=== PATIENT | female | born 1970 | race Caucasian/White ===

== ENCOUNTER 2018-05-13 12:52 | Inpatient (IN) | payer OTHER ==
[~2018-05-13] VITALS: Ht 160 cm; Wt 64.0 kg
[~2018-05-13 12:52] MED LIST: AZITHROMYCIN250 MG PO; CLONAZEPAM0.5 M2 PO; FIORICET 325 MG1 TAB PO; GABAPENTIN400 M2 PO; GABAPENTIN400 MG PO; PEN-VK500 MG PO; PERCOCET 325 MG1 TA2 PO; PERCOCET 325 MG1 TAB PO; TRAZODONE HCL50 M1 PO
[2018-05-13] MEDS ORDERED: SERTRALINE HCL100 MG PO (13:30)
[2018-05-13] MEDS ORDERED: CLONAZEPAM1 M2 PO (13:30)
[2018-05-13] MEDS ORDERED: GABAPENTIN600 M1 PO (13:30)
[2018-05-13] MEDS ORDERED: BUTALB-ACETAMI1 EACH PO (13:31)
[2018-05-13] MEDS ORDERED: OLANZAPINE10 M1 PO (13:31)
[2018-05-13] MEDS ORDERED: ADDERALL 10 MG10 MG PO (13:32)
--- NOTE | 2018-05-13 13:41 | ED DYSPNEA/ASTHMA COMPLAINT ---
History of Present Illness General Chief Complaint: General Adult Stated Complaint: SENT IN BY MD MCKEON FOR CHEST PAIN R/O PE Source: patient Allergies Coded Allergies: NO KNOWN ALLERGIES (07/29/13) Triage Note: 48 YO FEMALE TO TRIAGE FOR EVAL OF R SIDED CHEST PAIN AND +SOB SINCE THURSDAY. STATES WENT TO [facility] THIS AM AND HER HR WAS "UP AND DOWN" REPORTS HX OF ANXIETY AND WAS UNSURE IF SHE WAS STARTING TO HAVE AN ANXIETY ATTACK. EKG COMPELTED JULIO SUAREZ. Triage Nurses Notes Reviewed? yes HPI: Ms. Foster is a 48 y/o female with a significant past medical history of anxiety and depression comes to the ED after a PCP visit referred her to the ED for further evaluation due to a two day history of shortness of breath that appeared at rest and worsened on exertion. This shortness of breath is accompanied by stabbing right-sided chest pain, 7 out of 10, with no radiation that worsens with deep breathing. Patient denies any previous similar episodes, diaphoresis, history of DVT, recent immobilization, cough, LOC, and recent fevers. (Lexx Cerrato MD,[facility]) General Exam Limitations: no limitations Vital Signs & Intake/Output Vital Signs & Intake/Output Vital Signs Date Time Temp Pulse Resp B/P B/P Pulse O2 O2 Flow FiO2 Mean Ox Delivery Rate 05/13 1538 97.7 99 22 128/80 98 05/13 1304 97.8 106 20 130/84 96 Room Air Reconcile Medications Butalb/Acetaminophen/Caffeine (Sdsxsc-Vbbxmibq-Epac 50-325-40) 50 MG-325 MG-40 MG TABLET 1 TAB PO DAILY PRN HEADACHE (Reported) Clonazepam 1 MG TABLET 1 TAB PO QPMP PRN ANXIETY (Reported) Dextroamphetamine/Amphetamine (Adderall 10 MG Tablet) 10 MG TABLET 1 TAB PO BID PRN ANXIETY (Reported) Gabapentin 600 MG TABLET 2 TAB PO QPM SLEEP (Reported) Olanzapine 10 MG TABLET 1 TAB PO QPM SLEEP (Reported) Sertraline HCl 100 MG TABLET 2 TAB PO DAILY MENTAL HEALTH (Reported) (Nicolás MORGAN,Vinnie Osuna) Past History Travel History Traveled to [place] past 21 day No Medical History Any Pertinent Medical History? 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 No (Efren Baumann MD) Psychosocial History ETOH Use: occasional use Illicit Drug Use: denies illicit drug use (Nicolás MORGAN,Vinnie Osuna) Review of Systems Review of Systems Constitutional: Reports: see HPI. (Efren Baumann MD) Review of Systems Constitutional: Reports: no symptoms. EENTM: Reports: no symptoms. Respiratory: Reports: see HPI, short of breath. Cardiovascular: Reports: see HPI, chest pain. GI: Reports: no symptoms. Genitourinary: Reports: no symptoms. Musculoskeletal: Reports: no symptoms. Skin: Reports: no symptoms. Neurological/Psychological: Reports: no symptoms. Hematologic/Endocrine: Reports: no symptoms. Immunologic/Allergic: Reports: no symptoms. All Other Systems: Reviewed and Negative (Nicolás MORGAN,Vinnie Osuna) Physical Exam Physical Exam Respiratory: normal breath sounds, chest non-tender, lungs clear, No crackles or rhonchi heard. Shallow breathing noted. Comments: Gen.: Well-nourished, well-developed, in acute distress with shallow breathing noted. Head: Normocephalic, atraumatic. No signs of trauma. Eyes: Normal inspection bilaterally Neck: Supple, full ROM, no JVD. Heart: tachycardic, no murmurs rubs or gallops. Chest: Nontender. Abdomen: Bowel sounds present, soft, nontender, nondistended. Extremities: Normal range of motion grossly, no cyanosis clubbing, edema or erythema seen. Neurologic: Cranial nerves grossly intact, speech is clear. Psychiatric: Talkative, fidgety. Core Measures ACS in differential dx? Yes CVA/TIA Diagnosis No Sepsis Present: No Sepsis Focused Exam Completed? No Wells Criteria Score: 0 (Lexx Cerrato MD,Efren) Physical Exam General Appearance: well developed/nourished, alert, awake, anxious, moderate distress Head: atraumatic, normal appearance Eyes: Bilateral: PERRL, EOMI. Ears, Nose, Throat: normal pharynx, normal ENT inspection, hearing grossly normal Neck: normal inspection, supple, full range of motion Cardiovascular: regular rate/rhythm, normal peripheral pulses Gastrointestinal: normal bowel sounds, soft, non-tender, no organomegaly Extremities: normal inspection, normal capillary refill, normal range of motion, no edema Neurologic/Psych: no motor/sensory deficits, awake, alert, oriented x 3, normal gait, normal mood/affect Skin: intact, normal color, warm/dry Lymphatic: no anterior cervical rainer (Nicolás MORGAN,Vinnie Osuna) Progress Differential Diagnosis: AMI, P/e Plan of Care: Orders Procedure Date/time Status TROPONIN LEVEL 05/13 163 Active EKG 05/13 163 Active TROPONIN LEVEL 05/13 1310 Complete D-DIMER 05/13 1310 Complete COMPREHENSIVE METABOLIC PANEL 05/13 1310 Complete CBC WITHOUT DIFFERENTIAL 05/13 131 Complete EKG 05/13 1253 Active Current Medications Sig/Rosalie Start time Last Medication Dose Stop Time Status Admin Aspirin 325 MG ONCE ONE 05/13 173 UNVr (Aspirin) 05/13 1731 Laboratory Tests 05/13/18 1651: Troponin I Pending 05/13/18 1345: Anion Gap 9, Estimated GFR > 60, BUN/Creatinine Ratio 13.8, Glucose 96, Calcium 9.9, Total Bilirubin 0.7, AST 20, ALT 30, Alkaline Phosphatase 67, Troponin I < 0.01, Total Protein 6.6, Albumin 4.2, Globulin 2.4, Albumin/Globulin Ratio 1.8, D-Dimer High Sensitivty < 200, CBC w Diff NO MAN DIFF REQ, RBC 4.89, MCV 83.4, MCH 28.9, MCHC 34.7, RDW 13.4, MPV 7.6, Gran % 75.7 H, Lymphocytes % 12.3 L, Monocytes % 10.8 H, Eosinophils % 0.9, Basophils % 0.3, Absolute Granulocytes 3.5, Absolute Lymphocytes 0.6 L, Absolute Monocytes 0.5, Absolute Eosinophils 0 , Absolute Basophils 0 Initial ED EKG: sinus tachycardia (Lexx Cerrato MD,[facility]) Diagnostic Imaging: Viewed by Me: CT Scan. Discussed w/RAD: CT Scan. Radiology Impression: PATIENT: CHARIS FOSTER PRESENT AGE: 48 PATIENT ACCOUNT NO: [id number] : 70 LOCATION: [facility] ([place]) ORDERING PHYSICIAN: Vinnie Monzon MD SERVICE DATE: 05/13/18 EXAM TYPE: CAT - CTA CHEST-PULMONARY EMBOLISM EXAMINATION: CT ANGIOGRAM OF THE CHEST WITH AND WITHOUT CONTRAST (CT PULMONARY ANGIOGRAM FOR PE) CLINICAL INFORMATION: CP, SOB COMPARISON: CT scan abdomen pelvis 08/08/2012. TECHNIQUE: Prior to contrast administration, noncontrast localization images were obtained. Subsequently, multidetector volumetric imaging was performed from the thoracic inlet to below the diaphragms following the administration of 90 mL Optiray 320 intravenous contrast. No contrast reaction reported. Sagittal, coronal, and MIP oblique sagittal reformatted images were obtained on the CT workstation, uploaded to PACS, and reviewed. Total exam dose-length product 289.87 mGy-cm. FINDINGS: QUALITY OF STUDY/CONTRAST BOLUS: Satisfactory PULMONARY ARTERIES: No central or segmental pulmonary emboli. THORACIC AORTA: No aneurysm or dissection. There are vascular wall calcifications at the aortic arch. LUNG: No focal consolidation, nodules or masses. PLEURA: No pleural effusion or pneumothorax. MEDIASTINUM: Normal heart size. No pericardial effusion. No hilar or mediastinal lymphadenopathy. No evidence of septal bowing or right heart strain. CHEST WALL/ AXILLA: No axillary or internal mammary lymphadenopathy. OSSEOUS STRUCTURES: Is degenerative spondylosis of the thoracic spine with multilevel disc height narrowing and endplate spurring of the vertebrae. UPPER ABDOMEN: 9 mm hypodensity dome right lobe of liver segment 8 image 329 (2). This has sharply marginated borders. This was not present on the CAT scan of 07/31/2012 CT scan abdomen. In a patient with no history of malignancy no additional imaging would be suggested however. There is a 2.2 cm hypodense lesion in left upper quadrant which abuts both the left adrenal gland and the left kidney. This is likely an adrenal lesion.. This has density measurement of 31 Hounsfield units. This has decreased in size since the CAT scan of 08/08/2012. Previously measured 3.2 cm. IMPRESSION: 1. No acute abnormality. No evidence of pulmonary embolism. 2. 9 mm hypodensity dome right lobe liver. In patient with no history of malignancy no additional imaging would be suggested. 3. Decreased size of hypodense lesion left upper quadrant since prior CAT scan of 08/08/2012. VTE: negative DICTATED BY: Cheng Saez MD DATE/TIME DICTATED:05/13/181520 BUSINESS PLANNING MANAGER:MIKHAIL DATE/TIME TRANSCRIBED:05/13/181520 CONFIDENTIAL, DO NOT COPY WITHOUT APPROPRIATE AUTHORIZATION. <Electronically signed in Other Vendor System> SIGNED BY: Cheng Saez MD 05/13/18 1534 Repeat EKG: changed (NEW TWAVE FLATTENING) Rhythm Strip: normal sinus rhythm (Nicolás MORGAN,Vinnie Osuna) Departure Departure Condition: Stable Referrals: Emre Mckeon MD (PCP/Family) Departure Forms: Customer Survey General Discharge Information (Efren Baumann MD) Departure Disposition: STILL A PATIENT Clinical Impression Primary Impression: ACS (acute coronary syndrome) Admission Note Spoke With: Darren Webster MD Documentation of Exam: Documentation of any treatments & extenuating circumstances including Concerns Regarding Discharge (functional status, medication knowledge or non-compliance, living conditions, etc.) that warrant an admission rather than observation: [ Telemetry admission for chest pain with active EKG changes. Cardiology consultation, serial enzymes, may require cardiac catheterization] Resident Co-Sign Statement Statement: ED Attending supervision documentation- [X] I saw and evaluated the patient. I have also reviewed all the pertinent lab results and diagnostic results. I agree with the findings and the plan of care as documented in the Resident's documentation. [X] I have reviewed the ED Record and agree with the Resident's documentation. [] Additions or exceptions (if any) to the Resident's note and plan are summarized below: [] (Nicolás MORGAN,Vinnie Osuna) Critical Care Note Critical Care Note Critical Care Time: 30-74 min (Efren Baumann MD)
[2018-05-13 13:58] LABS: ABSOLUTE BASOPHIL COUNT 0 /CUMM (0.0-0.2); ABSOLUTE EOSINOPHIL COUNT 0 /CUMM (0.0-0.7); ABSOLUTE GRANULOCYTE CT 3.5 /CUMM (1.4-6.5); ABSOLUTE LYMPH COUNT 0.6 /CUMM (1.2-3.4); ABSOLUTE MONOCYTE COUNT 0.5 /CUMM (0.10-0.60); BASOPHIL % 0.3 % (0.0-2.0); EOSINOPHIL % 0.9 % (0-5); GRANULOCYTE % 75.7 % (42.2-75.2); HEMATOCRIT 40.8 % (37-47); MEAN CORPUSCULAR HGB 28.9 PG (27.0-31.0); MEAN CORPUSCULAR HGB CONC 34.7 G/DL (33.0-37.0); MEAN CORPUSCULAR VOLUME 83.4 FL (81.0-99.0); MEAN PLATELET VOLUME 7.6 FL (7.4-10.4); PLATELET COUNT 230 /CUMM (130-400); RBC DISTRIBUTION WIDTH 13.4 % (11.5-14.5); RED BLOOD CELL CT 4.89 /CUMM (4.20-5.40); WHITE BLOOD CELL COUNT 4.6 /CUMM (4.8-10.8)
--- NOTE | 2018-05-13 15:34 | CT SCAN REPORT ---
EXAMINATION: CT ANGIOGRAM OF THE CHEST WITH AND WITHOUT CONTRAST (CT PULMONARY ANGIOGRAM FOR PE) CLINICAL INFORMATION: CP, SOB COMPARISON: CT scan abdomen pelvis 08/08/2012. TECHNIQUE: Prior to contrast administration, noncontrast localization images were obtained. Subsequently, multidetector volumetric imaging was performed from the thoracic inlet to below the diaphragms following the administration of 90 mL Optiray 320 intravenous contrast. No contrast reaction reported. Sagittal, coronal, and MIP oblique sagittal reformatted images were obtained on the CT workstation, uploaded to PACS, and reviewed. Total exam dose-length product 289.87 mGy-cm. FINDINGS: QUALITY OF STUDY/CONTRAST BOLUS: Satisfactory PULMONARY ARTERIES: No central or segmental pulmonary emboli. THORACIC AORTA: No aneurysm or dissection. There are vascular wall calcifications at the aortic arch. LUNG: No focal consolidation, nodules or masses. PLEURA: No pleural effusion or pneumothorax. MEDIASTINUM: Normal heart size. No pericardial effusion. No hilar or mediastinal lymphadenopathy. No evidence of septal bowing or right heart strain. CHEST WALL/AXILLA: No axillary or internal mammary lymphadenopathy. OSSEOUS STRUCTURES: Is degenerative spondylosis of the thoracic spine with multilevel disc height narrowing and endplate spurring of the vertebrae. UPPER ABDOMEN: 9 mm hypodensity dome right lobe of liver segment 8 image 329 (2). This has sharply marginated borders. This was not present on the CAT scan of 07/31/2012 CT scan abdomen. In a patient with no history of malignancy no additional imaging would be suggested however. There is a 2.2 cm hypodense lesion in left upper quadrant which abuts both the left adrenal gland and the left kidney. This is likely an adrenal lesion.. This has density measurement of 31 Hounsfield units. This has decreased in size since the CAT scan of 08/08/2012. Previously measured 3.2 cm. IMPRESSION: 1. No acute abnormality. No evidence of pulmonary embolism. 2. 9 mm hypodensity dome right lobe liver. In patient with no history of malignancy no additional imaging would be suggested. 3. Decreased size of hypodense lesion left upper quadrant since prior CAT scan of 08/08/2012. VTE: negative
--- NOTE | 2018-05-13 17:44 | History & Physical ---
MarylouLukezaina 05/13/18 1743: General Information and HPI MD Statement: I have seen and personally examined CHARIS FOSTER and documented this H&P. The patient is a 48 year old F who presented with a patient stated chief complaint of right sided chest pain. Source of Information: patient, family Exam Limitations: no limitations History of Present Illness: Ms Foster is a 48 year old woman w/ a PMHx of anxiety and depression was sent from her primary care physician's office with a chief concern of right-sided chest pain X 2 days. She was known to be in her usual state of health until 2 days ago. She developed right-sided chest pain, radiating to the back one day after she moved furniture in her home. Did not report any injury. Reported pain 10/10, located below right breast area; Sharp in quality, worse upon taking a deep breath and twisting of torso. Reported worsening of pain in the last 2 days, for which she sought medical advice. She also reported acute onset of dyspnea, several episodes during the day which she relates it to worsening of pain and episodes of anxiety. No orthopnea or PND. No similar complaints in the past. Reported occasional lightheadedness, but did not have any loss of consciousness, injuries. Reported occasional palpitations, during these episodes of worsening pain. No cough, fever. No recent travel, no hormonal use, non-smoker, occasional use of alcohol. No intravenous drug use. No family h/o of clotting disorders or CAD. Allergies/Medications Allergies: Coded Allergies: NO KNOWN ALLERGIES (07/29/13) Compliance With Home Meds: GOOD Observation Initial Note - I have personally examined CHARIS FOSTER on 05/13/18 at 2118. 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 Review of Systems Review of Systems Constitutional: Reports: see HPI. Denies: fever, malaise. EENTM: Denies: visual changes. Cardiovascular: Reports: chest pain, palpitations. Denies: syncope. Respiratory: Reports: short of breath. Denies: cough. GI: Denies: melena, nausea. Genitourinary: Denies: dysuria. Musculoskeletal: Denies: back pain. Skin: Denies: change in skin color. Neurological/Psychological: Denies: anxiety. Hematologic/Endocrine: Denies: bruising. Exam & Diagnostic Data Last 24 Hrs of Vital Signs/I&O Vital Signs Date Time Temp Pulse Resp B/P B/P Pulse O2 O2 Flow FiO2 Mean Ox Delivery Rate 05/13 1921 97.5 102 22 126/89 100 Room Air 05/13 1538 97.7 99 22 128/80 98 05/13 1304 97.8 106 20 130/84 96 Room Air Intake & Output 05/13 1600 05/13 0800 05/13 0000 Intake Total Output Total Balance Patient 140 lb Weight Weight Reported by Patient Measurement Method Physical Exam General Appearance Alert, Oriented X3, Cooperative, No Acute Distress, Mild Distress Skin No Rashes, No Breakdown, No Significant Lesion Skin Temp/Moisture Exam: Warm/Dry Sepsis Skin Exam (color): Normal for Ethnicity HEENT Atraumatic, PERRLA, EOMI, Mucous Membr. moist/pink Neck Supple, No JVD, No thryomegaly, +2 Carotid Pulse wo Bruit Lymphatic Axillary nl, Cervical nl Cardiovascular Regular Rate, Normal S1, Normal S2, No Murmurs Lungs Clear to Auscultation, Normal Air Movement Abdomen Normal Bowel Sounds, Soft, No Tenderness, No Hepatospenomegaly Neurological Normal Speech, Strength at 5/5 X4 Ext, Normal Tone, Sensation Intact, Cranial Nerves 3-12 NL, Reflexes 2+ Extremities No Clubbing, No Cyanosis, No Edema, Normal Pulses Vascular Pulses Symmetrical Sepsis Peripheral Pulse Location: Dorsalis Pedis Sepsis Peripheral Pulse Exam: Normal Sepsis Cap Refill Exam: <2 Sec Last 24 Hrs of Labs/Paulo: Laboratory Tests 05/13/18 1651: Troponin I < 0.01 05/13/18 1345: Anion Gap 9, Estimated GFR > 60, BUN/Creatinine Ratio 13.8, Glucose 96, Calcium 9.9, Total Bilirubin 0.7, AST 20, ALT 30, Alkaline Phosphatase 67, Troponin I < 0.01, Total Protein 6.6, Albumin 4.2, Globulin 2.4, Albumin/Globulin Ratio 1.8, D-Dimer High Sensitivty < 200, CBC w Diff NO MAN DIFF REQ, RBC 4.89, MCV 83.4, MCH 28.9, MCHC 34.7, RDW 13.4, MPV 7.6, Gran % 75.7 H, Lymphocytes % 12.3 L, Monocytes % 10.8 H, Eosinophils % 0.9, Basophils % 0.3, Absolute Granulocytes 3.5, Absolute Lymphocytes 0.6 L, Absolute Monocytes 0.5, Absolute Eosinophils 0 , Absolute Basophils 0 Diagnostic Data EKG Results NSR, No STTWI. Subsequent EKG revealed, t wave flattening in lateral leads. Other Results CTA : 1. No acute abnormality. No evidence of pulmonary embolism. 2. 9 mm hypodensity dome right lobe liver. In patient with no history of malignancy no additional imaging would be suggested. 3. Decreased size of hypodense lesion left upper quadrant since prior CAT scan of 08/08/2012. VTE: negative Assessment/Plan Assessment: Ms Foster is a 48 year old woman w/ a PMHx of anxiety and depression was sent from her primary care physician's office with a chief concern of right-sided chest pain X 2 days likely secondary to musculoskeletal causes, but ACS needs to be ruled out. At the time of admission, vitals-temperature 97.7, pulse rate 99, respiration 22 , blood pressure 128/80, pulse ox 98% on room air. NSR, No STTWI. Subsequent EKG revealed, t wave flattening in lateral leads. Pertinent lab findings: WBC 4.6, hemoglobin 14.1, platelet count 230 Sodium 137, potassium 3.6, bicarbonate 24 BUN 11, creatinine 0.8. Troponin I-0.01, 0.01. CTA: 1. No acute abnormality. No evidence of pulmonary embolism. 2. 9 mm hypodensity dome right lobe liver. In patient with no history ofmalignancy no additional imaging would be suggested. 3. Decreased size of hypodense lesion left upper quadrant since prior CATscan of 08/08/2012. Etiolgy in her case of right sided chest pain which is very likey from musculoskeletal causes, which was relieved upon gettting anti-inflammatory meds+ msk relaxants. Other important causes that need to be considered in the setting of EKG changes is acute coronary syndrome, PE, pneumothorax. Other causes in her recent radiological e/o hepatic hypodensity at the dome of right liver could be hepatic adenoma, cyst ?, liver abscess/subdiaphramatic abscess ( no fever/ leucocytosis). Other interesting causes that are remote causes are chest wall twinge syndrome which presents that way, with no clear anatomic causes. Pericarditis needs to be ruled out in her case, and echocardiogram has been ordered. She has remote h/o of gastric polyps ( as per EMR ), which bring peptic ulcer in differential. Mastitis, fibrocystic changes in differentials. Anxiety could be contributing to her cause. Problem list: 1. Right sided chest pain 2. h/o anxiety 3. hypodense lesion in liver r/o liver abscess, subdiaphramatic abscess, hepatoma 4. Incidental ? adnexal mass Plan: 1. Please place the pt on observation. 2. Monitor for any arrythmias. 3. Serial electrocardigrams, and cardiac enzymes. 4. Echocardiogram to r/o pericardiits. Check ESR. 5. Start PPI. If the pt develops any guarding or rigidity, abdominal exam stat 6. Cardiology consult in the am. Dr. Elliott to be informed in the am. If the pt has any worsening symptoms, she needs any further cardiac workup please inform the cardiology. 7. Continue clonapin prn. 8. Avoid nsaids given her previous h/o GI bleed. Pain Mgt w/ tramadol, tylenol. 9. She was given x 1 dose of ASA 325, and continue ASA 81 mg daily. If cardiac cause is ruled out, please discontinue ASA. If she has any e/o pericariditis consider colchicine, given her h/o of GI bleed. Avoid indomethacin or Motrin or high dose of ASA. 10. Continue home dose of sertraline, gabapentin. Full code. Heart healthy diet. As Ranked By This Provider Problem List: 1. ACS (acute coronary syndrome) Core Measures/Misc (06/28) Acute Coronary Syndrome ACS Diagnosis: No Congestive Heart Failure Congestive Heart Failure Diagnosis No Cerebrovascular Accident CVA/TIA Diagnosis: No VTE (View Protocol) VTE Risk Factors Acute Medical Illness No Mechanical VTE Prophylaxis d/t N/A MechProphylax Ordered No VTE Pharm Prophylaxis d/t NA PharmProphylax ordered Sepsis (View protocol) Sepsis Present: No If YES complete Sepsis Event Note If YES complete Sepsis Event Note Darren Webster MD 05/13/18 0344: General Information and HPI Allergies/Medications Home Med list Butalb/Acetaminophen/Caffeine (Bsoonk-Flufdiel-Espy 50-325-40) 50 MG-325 MG-40 MG TABLET 1 TAB PO DAILY PRN HEADACHE (Reported) Clonazepam 1 MG TABLET 1 TAB PO QPMP PRN ANXIETY (Reported) Gabapentin 600 MG TABLET 1 TAB PO QPM SLEEP (Reported) Olanzapine 10 MG TABLET 1 TAB PO QPM SLEEP (Reported) Sertraline HCl 100 MG TABLET 1 TAB PO QPM MENTAL HEALTH (Reported) Core Measures/Misc (06/28) Sepsis (View protocol) If YES complete Sepsis Event Note If YES complete Sepsis Event Note Attending MD Review Statement Attending Statement Attending MD Statement: examined this patient, discuss w/resident/PA/RECREATIONAL PROGRAMS DIRECTOR, agreed w/resident/PA/RECREATIONAL PROGRAMS DIRECTOR, reviewed EMR data (avail), discussed with nursing, discussed with case mgmt, amended to note Attending Assessment/Plan: Patient seen and examined. I have reviewed and agree with the history and physical as documented by the resident above. Patients presentation appears atypical for ACS. Her persistent pain and abormal EKG however warrants further work-up. Problems: 1. Right-sided chest pain 2. Abnormal EKG 3. Anxiety disorder Plan: -Please initial level of care. -Telemetry monitoring. Trend cardiac enzymes. Obtain echo in a.m. -Continue patient's Zoloft. Continue gabapentin at bedtime. Recommend low dose of Klonopin as needed for anxiety. -Cardiology consultation for evaluation of abnormal EKG. -May need to consider further work up of her right lobe lesion if her right lower chest wall pain persists with a negative cardiac work up. Lfts are currently within normal limits.
[2018-05-13 21:30] VITALS: BP 116/80
[2018-05-14 07:11] VITALS: BP 104/66
--- NOTE | 2018-05-14 07:39 | PN- Housestaff ---
Norman Bradshaw 05/14/18 0738: Subjective Follow-up For: Chest pain Complaints: pain scale (0-10) (chest pain) Tele-Events Since Last Visit: none Subjective: Ms Foster is a 48 year old woman w/ a PMHx of anxiety and depression was sent from her primary care physician's office with a chief concern of right-sided chest pain X 2 days.She developed right-sided chest pain, radiating to the back one day after she moved furniture in her home. Did not report any injury. Reported pain 10/10, located below right breast area; Sharp in quality, worse upon taking a deep breath and twisting of torso. Reported worsening of pain in the last 2 days, for which she sought medical advice. She also reported acute onset of dyspnea, several episodes during the day which she relates it to worsening of pain and episodes of anxiety. No orthopnea or PND. No similar complaints in the past. Reported occasional lightheadedness, but did not have any loss of consciousness, injuries. Patient feels better overnight and the pain seems to be reducing Review of Systems Constitutional: Reports: see HPI. Objective Last 24 Hrs of Vital Signs/I&O Vital Signs Date Time Temp Pulse Resp B/P B/P Pulse O2 O2 Flow FiO2 Mean Ox Delivery Rate 05/14 0711 97.8 94 16 104/66 100 Room Air 05/13 2130 97.8 97 18 116/80 100 Room Air 05/13 2040 97.5 101 24 118/85 99 Room Air 05/13 1921 97.5 102 22 126/89 100 Room Air 05/13 1538 97.7 99 22 128/80 98 05/13 1304 97.8 106 20 130/84 96 Room Air Intake & Output 05/14 1600 05/14 0800 05/14 0000 Intake Total 180 60 Output Total 100 300 Balance -100 -120 60 Intake, Oral 180 60 Output, Urine 100 300 Patient 141 lb Weight Weight Bed scale Measurement Method Physical Exam General Appearance: Alert, Oriented X3, Cooperative, No Acute Distress Cardiovascular: Regular Rate, No Murmurs Lungs: Clear to Auscultation, Normal Air Movement Abdomen: Normal Bowel Sounds, Soft, No Tenderness, No Hepatospenomegaly, No Masses Neurological: Normal Speech, Strength at 5/5 X4 Ext, Normal Tone, Sensation Intact Extremities: No Clubbing, No Cyanosis, No Edema, Normal Pulses, No Tenderness/ Swelling Current Medications: Current Medications Sig/Rosalie Start time Last Medication Dose Route Stop Time Status Admin Acetaminophen 650 MG Q8P PRN 05/13 1915 AC PO Aspirin 81 MG DAILY 05/14 09 AC 05/14 PO 0830 Aspirin 325 MG ONCE ONE 05/13 1730 DC 05/13 PO 05/13 1731 1757 Aspirin 0 .STK-MED ONE 05/13 1723 DC PO Clonazepam 0.5 MG BID PRN 05/13 1930 AC PO 05/20 192 Cyclobenzaprine HCl 10 MG TID PRN 05/13 193 AC PO Cyclobenzaprine HCl 0 .STK-MED ONE 05/13 1659 DC PO Cyclobenzaprine HCl 10 MG ONCE ONE 05/13 1630 DC 05/13 PO 05/13 1631 1703 Gabapentin 600 MG QPM 05/13 2100 AC 05/13 PO 2242 Heparin Sodium 5,000 UNIT Q8 05/13 2200 AC 05/14 (Porcine) SC 0650 Ketorolac 30 MG ONCE ONE 05/13 1600 DC 05/13 Tromethamine IV 05/13 1601 1611 Ketorolac 0 .STK-MED ONE 05/13 1544 DC Tromethamine .ROUTE Morphine Sulfate 4 MG ONCE ONE 05/13 1645 DC IV 05/13 1646 Olanzapine 10 MG QPM 05/13 2100 AC 05/13 PO 2243 Omeprazole 40 MG DAILY AC 05/14 0700 AC 05/14 PO 0650 Oxycodone HCl 5 MG Q8P PRN 05/13 1930 AC 05/14 PO 0831 Sertraline HCl 100 MG DAILY 05/14 09 AC 05/14 PO 0830 Sertraline HCl 100 MG QPM 05/13 2100 DC PO Tramadol HCl 0 .STK-MED ONE 05/13 192 DC PO Tramadol HCl 50 MG Q8P PRN 05/13 191 AC 05/14 PO 0338 Last 24 Hrs of Lab/Paulo Results Last 24 Hrs of Labs/Mics: Laboratory Tests 05/14/18 0620: Anion Gap 6, Estimated GFR > 60, BUN/Creatinine Ratio 17.8, CBC w Diff NO MAN DIFF REQ, RBC 4.63, MCV 85.7, MCH 28.9, MCHC 33.8, RDW 13.4, MPV 8.0, Gran % 68.0, Lymphocytes % 15.2 L, Monocytes % 13.4 H, Eosinophils % 2.8, Basophils % 0.6, Absolute Granulocytes 2.6, Absolute Lymphocytes 0.6 L, Absolute Monocytes 0.5, Absolute Eosinophils 0.1, Absolute Basophils 0, ESR [facility] 10 05/13/18 2140: Troponin I < 0.01 05/13/18 1651: Troponin I < 0.01 05/13/18 1345: Anion Gap 9, Estimated GFR > 60, BUN/Creatinine Ratio 13.8, Glucose 96, Calcium 9.9, Total Bilirubin 0.7, AST 20, ALT 30, Alkaline Phosphatase 67, Troponin I < 0.01, Total Protein 6.6, Albumin 4.2, Globulin 2.4, Albumin/Globulin Ratio 1.8, D-Dimer High Sensitivty < 200, CBC w Diff NO MAN DIFF REQ, RBC 4.89, MCV 83.4, MCH 28.9, MCHC 34.7, RDW 13.4, MPV 7.6, Gran % 75.7 H, Lymphocytes % 12.3 L, Monocytes % 10.8 H, Eosinophils % 0.9, Basophils % 0.3, Absolute Granulocytes 3.5, Absolute Lymphocytes 0.6 L, Absolute Monocytes 0.5, Absolute Eosinophils 0 , Absolute Basophils 0 Assessment/Plan Assessment: Ms Foster is a 48 year old woman w/ a PMHx of anxiety and depression was sent from her primary care physician's office with a chief concern of right-sided chest pain X 2 days, pleuritic in nature and associated with shortness of breath , likely secondary to musculoskeletal causes, but ACS,PE needs to be ruled out. Patient is on telemetry for observation She was suspected for pulmonary embolism CTA was negative EKG- flattened T-wave in lateral leads, unchanged on serial EKGs, no ST elevation or depression Serial troponins within normal limits Breast examination normal Echocardiogram to rule out pericarditis reported normal. Problem List: 1. Chest pain in adult Cardiology was consulted and DR. Elliott ruled out any Pulmonary or cardiac causes and suspected Herpes/ cholilithiasis with a passed stone as a cause. He thought the patient could be discharged and followed up outpatient. Pain Ratin Pain Location: chest Pain Goal: Remain pain free Pain Plan: tyelenol Tomorrow's Labs & Rationales: none Devan MORGANKourtney 05/14/18 1050: Attending MD Review Statement Attending Statement Attending MD Statement: examined this patient, discuss w/resident/PA/NUT SORTER OPERATOR, agreed w/resident/PA/NUT SORTER OPERATOR, reviewed EMR data (avail), discussed with nursing, discussed with case mgmt Attending Assessment/Plan: 48-year-old female past medical history of anxiety here with nonspecific chest pain. Primarily pleuritic in nature and started after heavy exertion. CTA negative for PE shows a very small hypodense lesion that requires no further imaging. Echocardiogram was read as normal. So far patient has ruled out with serial enzymes. If cleared by cardiology likely discharged today with close outpatient follow-up.
[2018-05-14 08:05] LABS: ABSOLUTE BASOPHIL COUNT 0 /CUMM (0.0-0.2); ABSOLUTE EOSINOPHIL COUNT 0.1 /CUMM (0.0-0.7); ABSOLUTE GRANULOCYTE CT 2.6 /CUMM (1.4-6.5); ABSOLUTE LYMPH COUNT 0.6 /CUMM (1.2-3.4); ABSOLUTE MONOCYTE COUNT 0.5 /CUMM (0.10-0.60); BASOPHIL % 0.6 % (0.0-2.0); EOSINOPHIL % 2.8 % (0-5); HEMATOCRIT 39.7 % (37-47); MEAN CORPUSCULAR HGB 28.9 PG (27.0-31.0); MEAN CORPUSCULAR HGB CONC 33.8 G/DL (33.0-37.0); MEAN CORPUSCULAR VOLUME 85.7 FL (81.0-99.0); PLATELET COUNT 229 /CUMM (130-400); RBC DISTRIBUTION WIDTH 13.4 % (11.5-14.5); RED BLOOD CELL CT 4.63 /CUMM (4.20-5.40); WHITE BLOOD CELL COUNT 3.8 /CUMM (4.8-10.8)
--- NOTE | 2018-05-14 09:58 | PN- Student ---
Subjective Subjective: Pt doing well this am though she did not sleep well overnight. Pain has decreased from 7/10 to 3/10 and continues to be stabbing and pleuritic in the area around her R breast worsened with movement and deep breathing. She has no dyspnea, substernal chest pain, L sided chest pain, abdominal pain, nausea, constipation, diarrhea, dysuria, or leg pain. She expresses that she does not feel as anxious as yesterday and would like to go home if possible. Objective Objective: Vital Signs Date Time Temp Pulse Resp B/P B/P Pulse O2 O2 Flow FiO2 Mean Ox Delivery Rate 05/14 0711 97.8 94 16 104/66 100 Room Air 05/13 2130 97.8 97 18 116/80 100 Room Air 05/13 2040 97.5 101 24 118/85 99 Room Air 05/13 1921 97.5 102 22 126/89 100 Room Air 05/13 1538 97.7 99 22 128/80 98 / 1304 97.8 106 20 130/84 96 Room Air Tele: NSR 80-100 with max 114 PE: Gen: NAD, cooperative, comfortable Psych: mildly anxious and fidgiting Neuro: AOx4 CV: RRR No MRG Pulm: CTA BL Chest: no pain to palpation throughout R and L sides Ext: warm and well perfused Breast exam: deferred as it was performed last night with no abnormalities found Results Results: Laboratory Tests 05/14/18 0620: Anion Gap 6, Estimated GFR > 60, BUN/Creatinine Ratio 17.8, CBC w Diff NO MAN DIFF REQ, RBC 4.63, MCV 85.7, MCH 28.9, MCHC 33.8, RDW 13.4, MPV 8.0, Gran % 68.0, Lymphocytes % 15.2 L, Monocytes % 13.4 H, Eosinophils % 2.8, Basophils % 0.6, Absolute Granulocytes 2.6, Absolute Lymphocytes 0.6 L, Absolute Monocytes 0.5, Absolute Eosinophils 0.1, Absolute Basophils 0, ESR Westergren Pending 05/13/18 2140: Troponin I < 0.01 05/13/18 1651: Troponin I < 0.01 Assessment/Plan Assessment: Pt is a 48yoF with PMH of anxiety and depression along with cervical and lumbar fusions, migraines, and bleeding ulcers. She presented to the hospital yesterday with 2 day hx of acute onset pleuritic SOB and R sided chest pain which does not radiate after moving furniture in her home 3 days prior to presentation. She denied fall or other injury, hx of hormonal use, travel, sick contacts. Ddimer was negative. Serial troponins are negative and EKGs show slight sinus tachy and NSR. CTA was also neg for PE and showed a 9mm hypodensity on the dome of the R liver and hypodense lesion LUQ since prior CT scan in 2011. Pt is improving symptomatically at this time. ECHO shows normal R and L systolic without valvular abnormalities and EF 60-65%. 1. R Chest Pain Pt's chest pain is of unknown etiology but seems likely to be due to MSK injury, related to her cervical fusion, or anxiety as PE, IA, and pericarditis have been r/o. * F/u cardiology consult. * Continue home meds. * Continue pain management w/o use of NSAIDs d/t hx of ulcers. 2. Dyspnea Pt's dyspnea likely related to chest pain and anxiety as her sx have resolved today and she is able to breathe normally. * F/u cardiology consult. 3. Anxiety Stable. Continue outpatient meds. 4. Hypodense lesion on R liver Incidental finding. Radiology does not recommend further imaging as patient has no hx of malignancy or risk factors. This seems to be unrelated from patient's current pain as it would be expected to cause referred pain to shoulder rather than R side. Can f/u if patient becomes symptomatic. 5. L sided lesion near L adrenal gland and L kidney Known lesion which has decreased in size since previous CT in 2012. Pt is asymptomatic so can f/u if symptoms occur. Diet: Heart Healthy DVT: Heparin SQ Code: Full
--- NOTE | 2018-05-14 10:03 | ECHOCARDIOGRAM REPORT ---
CHARIS YOUSIF Age: 48 : 1970 Gender: F Exam Date: 05/13/2018 20:11 Exam Location: ER Ht (in): 62 Wt (lb): 140 BSA: 1.68 BP: 126 / 89 Ordering Physician: MEGHANA VALLEJO MD Referring Physician: MEGHANA VALLEJO MD Technologist: Tiara Sandoval RDCS Room Number: ER#10 Indications: Chest pain Rhythm: Sinus Technical Quality: good FINDINGS Left Ventricle Normal global left ventricular size, wall thickness, systolic function with no obvious regional wall motion abnormalities. Normal left ventricular ejection fraction estimated at 60-65%. Right Ventricle Normal right ventricular size and function. Right Atrium Normal right atrial size. Left Atrium Normal left atrial size. Mitral Valve Mitral valve normal in structure and function. Trace mitral regurgitation. Aortic Valve Aortic valve is normal in structure and function. Tricuspid Valve Tricuspid valve is normal in structure and function. Pulmonic Valve Pulmonic valve not well visualized, grossly normal. Pericardium No pericardial effusion. Great Vessels Normal size aortic root and proximal ascending aorta. CONCLUSIONS Normal left and right ventricular systolic function. No significant valvular abnormalities noted Pal Hartman M.D. (Electronically Signed) Final Date: 14 May 2018 10:02 MEASUREMENTS (Male / Female) Normal Values 2D ECHO LV Diastolic Diameter PLAX 3.6 cm 4.2 - 5.9 / 3.9 - 5.3 cm LV Systolic Diameter PLAX 2.1 cm 2.1 - 4.0 cm LV Fractional Shortening PLAX 41.7 % 25 - 46 % LV Ejection Fraction 2D Teich 73.5 % IVS Diastolic Thickness 1.0 cm LVPW Diastolic Thickness 1.0 cm LV Relative Wall Thickness 0.6 RV Internal Dim ED PLAX 2.0 cm 1.9 - 3.8 cm LVOT Diameter 1.8 cm Aortic Root Diameter 2.7 cm LA Systolic Diameter LX 2.6 cm 3.0 - 4.0 / 2.7 - 3.8 cm LA Volume 31.0 cm 18 - 58 / 22 - 52 cm Ascending Aorta Diameter 3.0 cm DOPPLER AV Peak Velocity 123.0 cm/s AV Peak Gradient 6.1 mmHg AV Mean Velocity 89.4 cm/s AV Mean Gradient 4.0 mmHg AV Velocity Time Integral 19.4 cm LVOT Peak Velocity 109.0 cm/s LVOT Peak Gradient 4.8 mmHg LVOT Mean Velocity 76.9 cm/s LVOT Mean Gradient 3.0 mmHg LVOT Velocity Time Integral 15.5 cm LVOT Stroke Volume 39.4 cm AV Area Cont Eq vti 2.0 cm AV Area Cont Eq pk 2.3 cm MV Peak Velocity 83.7 cm/s MV Peak Gradient 2.8 mmHg MV Mean Velocity 58.3 cm/s MV Mean Gradient 2.0 mmHg Mitral E Point Velocity 61.7 cm/s Mitral A Point Velocity 80.9 cm/s Mitral E to A Ratio 0.8 MV PHT Velocity 74.7 cm/s MV Deceleration Rowan 377.0 cm/s MV Pressure Half Time 59.4 ms MV Area PHT 3.7 cm MV Deceleration Time 203.0 ms PV Peak Velocity 97.9 cm/s PV Peak Gradient 3.8 mmHg PV Mean Velocity 68.0 cm/s PV Mean Gradient 2.0 mmHg PV Velocity Time Integral 16.1 cm LV E' Lateral Velocity 8.4 cm/s Mitral E to LV E' Lateral Ratio 7.4 LV E' Septal Velocity 5.4 cm/s Mitral E to LV E' Septal Ratio 11.5
--- NOTE | 2018-05-14 10:52 | Patient Discharge Instructions ---
Discharge Instructions General Discharge Information You were seen/treated for: Nonspecific chest pain,on the right side of the chest Special Instructions: Please follow-up with your PCP within a week of discharge Please follow-up with your budget record clerk within a week of discharge Diet Recommended Diet: Heart Healthy Acute Coronary Syndrome Inclusion Criteria At DC or during hospital stay patient has or had the following: ACS DIAGNOSIS No Discharge Core Measures Meds if any: Prescribed or Continued at Discharge Meds if any: NOT Prescribed or Continued at Discharge Congestive Heart Failure Inclusion Criteria At DC or during hospital stay patient has or had the following: CHF DIAGNOSIS No Discharge Core Measures Meds if any: Prescribed or Continued at Discharge Meds if any: NOT Prescribed or Continued at Discharge Cerebrovascular accident Inclusion Criteria At DC or during hospital stay patient has or had the following: CVA/TIA Diagnosis No Discharge Core Measures Meds if any: Prescribed or Continued at Discharge Meds if any: NOT Prescribed or Continued at Discharge Venous thromboembolism Inclusion Criteria VTE Diagnosis No VTE Type NONE VTE Confirmed by (Test) NONE Discharge Core Measures - Per Current guidelines, there needs to be overlap - treatment for the first 5 days of Warfarin therapy. - If discharged on Warfarin prior to 5 days of - overlap therapy, the patient will need to be - assessed for post discharge needs including - *Post discharge parental anticoagulation - *Warfarin and/or parental anticoagulation education - *Follow up date to check INR post discharge At least 5 days overlap therapy as Inpatient No Meds if any: Prescribed or Continued at Discharge Note: Overlap Therapy is Warfarin and Anticoagulant Meds if any: NOT Prescribed or Continued at Discharge
[2018-05-14] MEDS ORDERED: ASPIRIN81 M4 PO (11:57)
[2018-05-14] MEDS ORDERED: OMEPRAZOLE20 M2 PO (11:58)
[2018-05-14 14:04] VITALS: BP 126/76
--- NOTE | 2018-05-14 16:20 | Cons- Cardiology ---
General Information and HPI Consulting Request Date of Consult: 05/14/18 Requested By: Devan MORGAN,Kourtney Zuniga History of Present Illness: Janis is a 48 year old female with no prior cardiac history who complains of intermittent chest discomfort since this past Thursday. The discomfort is a moderate, sharp, intermittient discomfort that is exacerbated by deep inhalation. It is not affected by manual palpation, movement of her arm or body or by physical exertion. She had not eaten much to determine if there was any association with eating but there was some nausea. The patient did not feel as though she could take a deep breath without exacerbating this discomfort so she took shallow breaths and consequently felt short of breath. No lightheadedness or palpitations. No fever or chills. Allergies/Medications Allergies: Coded Allergies: NO KNOWN ALLERGIES (NONE 05/14/18) Home Med List: Aspirin (Aspirin*) 81 MG TAB.CHEW 81 MG PO DAILY chest pain Butalb/Acetaminophen/Caffeine (Tecvbk-Jlcywngn-Zvpu 50-325-40) 50 MG-325 MG-40 MG TABLET 1 TAB PO DAILY PRN HEADACHE (Reported) Clonazepam 1 MG TABLET 1 TAB PO QPMP PRN ANXIETY (Reported) Gabapentin 600 MG TABLET 1 TAB PO QPM SLEEP (Reported) Olanzapine 10 MG TABLET 1 TAB PO QPM SLEEP (Reported) Omeprazole 20 MG CAPSULE.DR 40 MG PO DAILY AC PUD Sertraline HCl 100 MG TABLET 1 TAB PO QPM MENTAL HEALTH (Reported) Review of Systems Review of Systems: A twelve poinst review of systems is unremarkable. Past History Travel History Traveled to [place] past 21 day No Medical History Blood Transfusion Hx: Yes Neurological: migraine EENT: NONE Cardiovascular: NONE Respiratory: NONE Gastrointestinal: NONE Hepatic: NONE Renal: NONE Musculoskeletal: NONE Psychiatric: anxiety, depression Endocrine: NONE Blood Disorders: NONE Cancer(s): NONE HAND TOOL LAPPER/Reproductive: NONE Surgical History Surgical History: root canal CERVICAL FUSION SPINAL FUSION C-SECTIONS X 2 Family History Relations & Conditions If Any: Relation not specified for: *No pertinent family history Psychosocial History Where Do You Live? Home Services at Home: None Smoking Status: Former Smoker ETOH Use: occasional use Illicit Drug Use: denies illicit drug use Functional Ability ADLs Independent: dressing, eating, toileting, bathing. Exam & Diagnostic Data Vital Signs and I&O Vital Signs Date Time Temp Pulse Resp B/P B/P Pulse O2 O2 Flow FiO2 Mean Ox Delivery Rate 05/14 1404 98.1 84 18 126/76 97 Room Air 05/14 0711 97.8 94 16 104/66 100 Room Air 05/13 2130 97.8 97 18 116/80 100 Room Air 05/13 2040 97.5 101 24 118/85 99 Room Air 05/13 1921 97.5 102 22 126/89 100 Room Air Intake & Output 05/14 1600 05/14 0805/14 0000 05/13 1600 05/13 0805/13 0000 Intake Total 180 60 Output Total 100 300 Balance -100 -120 60 Intake, Oral 180 60 Output, Urine 100 300 Patient 141 lb 140 lb Weight Weight Bed scale Reported by Patient Measurement Method Physical Exam: General: WD/WN female in NAD; alert and oriented x 3 HEENT: NC/AT, PERRL, EOMI Neck: no JVD, no carotid bruit Heart: RRR w/o murmur Lungs: clear bilaterally Abdomen: soft, NT, +ve bowel sounds Extremities: no edema Assessment/Plan Assessment/Plan * This patient has an intermittent sharp and pleuritic discomfort. There is no evidence of a PE or myocardial ischemia. The patient has a normal EF without a pericardial effusion and no regional wall motion abnormalities. I would consider a radiculopathy, H. Zoster or cholelithiasis with a passed stone. There is no rash but often the rash of shingles follows the pain by a couple days. The patient was able to eat today without discomfort. Since her pain has resolved I think it is safe and reasonable to discharge this patient with a plan for office follow up in a week. Consult Acknowledgment - Thank you for your consult request.
--- NOTE | 2018-05-15 07:08 | Discharge Summary ---
Visit Information Visit Dates Admission Date: 05/13/18 Discharge Date: 05/14/18 Hospital Course Course Attending Physician: Devan MORGAN,Kourtney Zuniga Primary Care Physician: James MORGAN,Emre Zuniga Consulting Request: Consulting Specialty: Cardiology Consulting Physician: DR. Elliott Reason for Consult: To rule out ACS Hospital Course: Ms Foster is a 48 year old woman w/ a PMHx of anxiety and depression was sent from her primary care physician's office with a chief concern of right-sided chest pain X 2 days, pleuritic in nature and associated with shortness of breath , likely secondary to musculoskeletal causes, but ACS,PE needs to be ruled out. Patient is on telemetry for observation She was suspected for pulmonary embolism CTA was negative EKG- flattened T-wave in lateral leads, unchanged on serial EKGs, no ST elevation or depression Serial troponins within normal limits Breast examination normal Echocardiogram to rule out pericarditis reported normal. Cardiology was consulted and DR. Elliott ruled out any Pulmonary or cardiac causes and suspected Herpes/ cholilithiasis with a passed stone as a cause. He thought the patient could be discharged and followed up outpatient. Allergies: Coded Allergies: NO KNOWN ALLERGIES (NONE 05/14/18) Significant Procedures: Echocardiogram- neg CTA- neg Pertinent Lab Results: no abnormalities Disposition Summary Disposition Principal Diagnosis: Chest pain Negative for Pulmonary embolism/ pericarditis/ pleural effusion and ACS Additional Diagnosis: none Discharge Disposition: home or self care Discharge Instructions General Discharge Information Code Status: Full Code Patient's Diet: regular Patient's Activity: regular Follow-Up Instructions/Appts: Follow up with PCP and CArdiology in 1 week Medications at Discharge Discharge Medications: Stop taking the following medications: Butalb/Acetaminophen/Caffeine (Lvecus-Rzrxcsli-Oiss 50-325-40) 50 MG-325 MG-40 MG TABLET ORAL DAILY as needed for HEADACHE Qty = 30 Continue taking these medications: Sertraline HCl (Sertraline HCl) 100 MG TABLET 1 Tablet ORAL Every night Qty = 60 Comments: Last Taken: 05/14 Time: 8AM Gabapentin (Gabapentin) 600 MG TABLET 1 Tablet ORAL Every night Qty = 60 Comments: Last Taken: 05/13 Time: 10PM Clonazepam (Clonazepam) 1 MG TABLET 1 Tablet ORAL Every night as needed as needed for ANXIETY Qty = 30 Comments: NOT GIVEN IN HOSPITAL Olanzapine (Olanzapine) 10 MG TABLET 1 Tablet ORAL Every night Qty = 30 Comments: Last Taken: 05/13 Time: 10PM Start taking the following new medications: Aspirin (Aspirin*) 81 MG TAB.CHEW 81 Milligram ORAL DAILY Qty = 90 No Refills Comments: Last Taken: 05/14 Time: 830AM Omeprazole (Omeprazole) 20 MG CAPSULE.DR 40 Milligram ORAL DAILY BEFORE BREAKFAST Qty = 14 No Refills Comments: Last Taken: 05/14 Time: 730AM Copies To: James MORGAN,Emre Elliott MD PHD,Kirill Calderon
== END 2018-05-14 17:40 | DRG 313 ==
LOC: ERH 12:52 → 1NO 17:27 → ERHI 17:27 → ENRESERV 19:43 → ENTRNSPT 20:32 → EDTRNSPTSTS 20:45 → 1NO 20:52 → CMPTRNSPT 21:46 → 1NO 05-14 07:11
PROVIDERS: Emergency Medicine; Internal Medicine Endocrinology, Diabetes & Metabolism
DX: R07.89 Other chest pain (principal); F41.9 Anxiety disorder, unspecified; F32.9 Major depressive disorder, single episode, unspecified; R94.31 Abnormal electrocardiogram [ECG] [EKG]; Z98.1 Arthrodesis status; Z87.891 Personal history of nicotine dependence
CPT/HCPCS: 1NSP; 36592; 82436; 93005; 93010; 93306; J1644; J1885; J3030; J3101; J3490

== ENCOUNTER 2018-06-12 21:12 | Inpatient (IN) | payer OTHER ==
[~2018-06-12] VITALS: Ht 160 cm; Wt 63.5 kg
[~2018-06-12 21:12] MED LIST changes: +ADDERALL 10 MG10 MG PO; +ASPIRIN81 M4 PO; +BUTALB-ACETAMI1 EACH PO; +CLONAZEPAM1 M2 PO; +GABAPENTIN600 M1 PO; +OLANZAPINE10 M1 PO; +OMEPRAZOLE20 M2 PO; +SERTRALINE HCL100 MG PO
--- NOTE | 2018-06-12 22:00 | ED HEADACHE COMPLAINT ---
History of Present Illness General Chief Complaint: General Adult Stated Complaint: DX W/SHINGLES YEST,NOW HORRIBLE RODRIGUEZ,HURTS TO MOVE Source: patient Exam Limitations: no limitations Vital Signs & Intake/Output Vital Signs & Intake/Output Vital Signs Date Time Temp Pulse Resp B/P B/P Pulse O2 O2 Flow FiO2 Mean Ox Delivery Rate 06/13 0445 98.6 93 16 103/61 100 Room Air 06/13 0232 98.7 94 18 98/56 98 Room Air 06/12 2343 100.1 06/12 2330 100.1 86 20 134/78 97 Room Air 06/12 2121 101.2 130 22 123/86 98 ED Intake and Output 06/13 0000 06/12 1200 Intake Total 0 Output Total Balance 0 Intake, Oral 0 Allergies Coded Allergies: NO KNOWN ALLERGIES (NONE 05/14/18) Triage Note: PER PT DX WITH SHINGLES YESTERDAY, TODAY WORST RODRIGUEZ AND DRY HEAVING AND CANT EVEN LOOK DOWN D/T POUNDING IN HEAD ON VALTREX AND GABAPENTIN Triage Nurses Notes Reviewed? yes Onset: Gradual Duration: day(s): Timing: recent history Quality/Severity: severe HPI: 48yo female with history of anxiety, depression, migraines presents emergency department complaining of severe headache which began earlier this morning. Patient reports associated neck pain and stiffness. Patient was diagnosed with shingles yesterday, she is currently taking oral medication. Patient had paresthesias to right arm and noticed a rash to right arm 2 days ago. Rash gradually increased in size and pain. Patient's primary care doctor yesterday for shingles diagnosis. Patient reports photophobia, nausea, dry heaving. She reports fever, chills, malaise, myalgias. Headache is worse with movement of her neck. Patient reports baseline cervical degeneration however current neck pain and stiffness are new today. (Jody HINTON,Marsha Whelan) Reconcile Medications Aspirin (Aspirin*) 81 MG TAB.CHEW 81 MG PO DAILY chest pain Clonazepam 1 MG TABLET 1 TAB PO QPMP PRN ANXIETY (Reported) Gabapentin 600 MG TABLET 1 TAB PO TID PAIN CONTROL (Reported) Olanzapine 10 MG TABLET 1 TAB PO QPM SLEEP (Reported) Omeprazole 20 MG CAPSULE.DR 40 MG PO DAILY AC PUD Sertraline HCl 100 MG TABLET 1 TAB PO QAM MENTAL HEALTH (Reported) Valacyclovir HCl (Valtrex) 1,000 MG TABLET 1 TAB PO Q8 SHINGLES (Reported) (Rosalinda MORGAN,Jose Schmidt) Past History Travel History Traveled to [place] past 21 day No Medical History Any Pertinent Medical History? see below for history Neurological: migraine EENT: NONE Cardiovascular: NONE Respiratory: NONE Gastrointestinal: NONE Hepatic: NONE Renal: NONE Musculoskeletal: NONE Psychiatric: anxiety, depression Endocrine: NONE Blood Disorders: NONE Cancer(s): NONE CORRECTIONAL GUARD/Reproductive: NONE History of MRSA: No History of VRE: No History of CDIFF: No Surgical History Surgical History: root canal CERVICAL FUSION SPINAL FUSION C-SECTIONS X 2 Psychosocial History Who do you live with Family Services at Home None What is your primary language Tuvaluan Tobacco Use: Never used Family History Family History, If Any: Relation not specified for: *No pertinent family history Hx Contributory? No (Marsha Orantes) Review of Systems Review of Systems Constitutional: Reports: see HPI. Eyes: Reports: see HPI. Ears, Nose, Throat, Mouth: Reports: no symptoms. Respiratory: Reports: no symptoms. Cardiovascular: Reports: no symptoms. Gastrointestinal/Abdominal: Reports: see HPI. Genitourinary: Reports: no symptoms. Musculoskeletal: Reports: no symptoms. Skin: Reports: see HPI. Neurological/Psychological: Reports: see HPI. Hematologic/Endocrine: Reports: no symptoms. Endocrine: Reports: no symptoms. Immunologic/Allergic: Reports: no symptoms. All Other Systems: Reviewed and Negative (Marsha Orantes) Physical Exam Physical Exam General Appearance: well developed/nourished, no apparent distress, alert, awake Head: atraumatic, normal appearance Eyes: Bilateral: normal appearance, PERRL, EOMI. Ears, Nose, Throat: normal pharynx, hearing grossly normal Neck: supple, full range of motion, bilateral tenderness and stiffness, kernigs and brudinski's signs negative Respiratory: normal breath sounds, no respiratory distress, lungs clear Cardiovascular: tachycardia Gastrointestinal: normal bowel sounds, soft, non-tender, no organomegaly Back: normal inspection, normal range of motion Extremities: normal range of motion Psychiatric: awake, alert, oriented x 3 Cranial Nerves: normal hearing, normal speech, PERRL, CN II-XII intact Motor/Sensory: no motor/sensory deficits Skin: intact, normal color, warm/dry Core Measures Sepsis Present: No Sepsis Focused Exam Completed? No (Jody HINTON,Marsha Whelan) Progress Differential Diagnosis: cluster RODRIGUEZ, encephalitis, IC mass/tumor, intracranial Hem., meningitis, migraine RODRIGUEZ, sinusitis, subarach. Hem., tension RODRIGUEZ, viral cephalgia Plan of Care: Orders Procedure Date/time Status Regular Diet 06/13 B Active CBC WITHOUT DIFFERENTIAL 06/13 06 Active BASIC ELECTROLYTES PLUS BUN&CR 06/13 06 Active Weight 06/13 0535 Active Vital Signs 06/13 535 Active Teach/Educate 06/13 535 Active Pain Treatment and Response 06/13 535 Active Nutritional Intake, Monitor 06/13 535 Active Isolation 06/13 535 Active Intake & Output 06/13 05 Active Patient Care Conference 06/13 535 Active Activity/Ambulation 06/13 05 Active Code Status 06/13 0416 Active Admit to inpatient 06/13 0344 Active Saline Lock 06/13 0326 Active Pathway - chart 06/13 032 Active House Staff 06/13 0326 Active Patient Data 06/13 0326 Active CEREBROSPINAL FLUID CULTURE 06/13 0104 Active HERPES SIMPLEX VIRUS CSF 06/13 0104 Active CYTOLOGY SPECIMEN 06/13 0104 Active CSF TOTAL PROTEIN 06/13 0104 Complete CEREBROSPINAL FL CELL CT 06/13 0104 Complete CSF LDH 06/13 0104 Complete CSF GLUCOSE 06/13 0104 Complete LACTIC ACID 06/13 0059 Active VTE Mechanical Prophylaxis 06/13 UNK Active Vital Signs 06/13 UNK Active Intake & Output 06/13 UNK Active Activity/Ambulation 06/13 UNK Active BLOOD CULTURE 06/12 2241 Active HUMAN BETA HCG SCREEN 06/12 2230 Complete URINALYSIS 06/12 215 Complete LACTIC ACID 06/12 215 Complete COMPREHENSIVE METABOLIC PANEL 06/12 2148 Complete CBC WITHOUT DIFFERENTIAL 06/12 2148 Complete Current Medications Sig/Rosalie Start time Last Medication Dose Stop Time Status Admin Gabapentin 600 MG QPM 06/13 2100 AC (Neurontin) Olanzapine 10 MG QPM 06/13 2100 AC (Zyprexa) Sertraline HCl 100 MG QPM 06/13 2100 AC (Zoloft) Enoxaparin Sodium 40 MG DAILY 06/13 09 UNVr (Lovenox) Acyclovir 700 MG Q8H 06/13 06 AC (Zovirax) Dextrose/Water 250 ML (D5W) Clonazepam 1 MG AT BEDTIME NEED.. 06/13 050 AC (Klonopin 1MG Tab) 06/20 459 Ketorolac 30 MG Q12P PRN 06/13 050 AC Tromethamine 06/18 459 (Toradol) Tramadol HCl 50 MG Q4 PRN 06/13 050 AC (Ultram) Sodium Chloride 1,000 ML Q10H 06/13 0415 AC (Normal Saline 0.9%) 06/14 001 Acetaminophen 650 MG Q6P PRN 06/13 033 AC (Tylenol) Acetaminophen 1,000 MG Q6 PRN 06/13 033 AC (Ofirmev) Oxycodone/ 1 TAB Q6P PRN 06/13 033 AC Acetaminophen (Percocet) Laboratory Tests : CSF Glucose 61, CSF LDH 103, CSF Total Protein 57 : Lymphocytes 88, Misc Hematology Test 12, CSF WBC 41 *H, CSF RBC 3 H, CSF Comment , Herpes Simplex Source Pending, HSV I DNA PCR Pending, HSV II DNA PCR Pending 06/12/182232: Urine Color YEL, Urine Clarity CLEAR, Urine pH 7.5, Ur Specific [place] 1.020, Urine Protein NEG, Urine Ketones NEG, Urine Nitrite NEG, Urine Bilirubin NEG, Urine Urobilinogen 0.2, Ur Leukocyte Esterase MOD H, Ur Microscopic SEDIMENT EXAMINED, Urine RBC RARE, Urine WBC 3-5 H, Ur Epithelial Cells FEW, Urine Bacteria RARE H, Urine Hemoglobin TRACE-INTACT, Urine Glucose NEG 06/12/182229: Lactic Acid 1.4 06/12/182229: Anion Gap 10, Estimated GFR > 60, BUN/Creatinine Ratio 10.0, Glucose 110 H, Calcium 9.8, Total Bilirubin 0.5, AST 34, ALT 33, Alkaline Phosphatase 63, Total Protein 7.1, Albumin 4.8, Globulin 2.3, Albumin/Globulin Ratio 2.1, Total Beta HCG NEGATIVE, CBC w Diff NO MAN DIFF REQ, RBC 5.00, MCV 85.1, MCH 29.0, MCHC 34.1, RDW 13.7, MPV 7.2 L, Gran % 86.7 H, Lymphocytes % 7.0 L, Monocytes % 5.2, Eosinophils % 0.5, Basophils % 0.6, Absolute Granulocytes 5.3, Absolute Lymphocytes 0.4 L, Absolute Monocytes 0.3, Absolute Eosinophils 0, Absolute Basophils 0 06/12/182219: Total Beta HCG Cancelled Microbiology 06/13 010 CENT N S: CSF Culture - RES 06/13 100 CENT N S: Gram Stain - RES 06/12 2245 BLOOD: Blood Culture - RECD 06/12 2240 BLOOD: Blood Culture - RECD Patient presents with fever, tachycardia, shingles rash, headache and neck stiffness. She was treated with IV acetaminophen and Zofran for her symptoms. Labs and head CT scan are pending. Patient's labs are stable, CT scan shows no acute abnormality. Patient's symptoms are concerning for meningitis, given her acute shingles rash, viral meningitis is more likely. Patient consents to LP. Lumbar puncture procedure note: Procedure performed by Ale Elizabeth MD. Betadine antiseptic used in sterile fashion with sterile drapes applied. 6cc 1% lidocaine used for anestesia. Following insertion of spinal needle, clear CSF fluid collected in tubes. Openning pressure attempted however was not obtained. The patient tolerated procedure well, no complications. The patient was signed out to Dr. Tellez pending CSF analysis. Diagnostic Imaging: Viewed by Me: CT Scan. Discussed w/RAD: CT Scan. Radiology Impression: PATIENT: JANIS YOUSIF PRESENT AGE: 48 PATIENT ACCOUNT NO: [id number] : 70 LOCATION: [facility] ORDERING PHYSICIAN: Marsha HINTON SERVICE DATE: 06/12/18 EXAM TYPE: CAT - CT HEAD WO IV CONTRAST EXAMINATION: CT HEAD WITHOUT CONTRAST CLINICAL INFORMATION: Headache and fever. Concern for encephalitis. COMPARISON: July 29, 2013. TECHNIQUE: Contiguous axial images of the brain were obtained without IV contrast. DLP: 621 mGy-cm. FINDINGS: There are no pathologic extra-axial fluid collections. The lateral, third, fourth ventricles are nondilated and concordant with the appearance of the sulci. There is no evidence for acute intraparenchymal hemorrhage or infarct. There is neither mass nor mass effect. There is no shift of midline structures. The paranasal sinuses and mastoid air cells are clear. There are no osseous lesions. IMPRESSION: No evidence for acute intracranial injury. DICTATED BY: Torin Villegas MD DATE/TIME DICTATED:06/12/182325 TOOL DISTRIBUTOR:MIKHAIL DATE/TIME TRANSCRIBED:06/12/182325 CONFIDENTIAL, DO NOT COPY WITHOUT APPROPRIATE AUTHORIZATION. 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 06/13/2018 3:02:02 AM I have updated Janis on test results. She is feeling better. 06/13/2018 3:44:31 AM patient's case discussed with Dr. WEBSTER and the MOD. (Rosalinda MORGAN,Jose Schmidt) Departure Departure Disposition: STILL A PATIENT Condition: Stable Referrals: Emre Ramirez MD (PCP/Family) Departure Forms: Customer Survey General Discharge Information (Marsha Orantes) Departure Clinical Impression Primary Impression: Headache Qualifiers: Headache type: unspecified Headache chronicity pattern: acute headache Secondary Impressions: Shingles Admission Note [facility] Documentation of Exam: Documentation of any treatments & extenuating circumstances including Concerns Regarding Discharge (functional status, medication knowledge or non-compliance, living conditions, etc.) that warrant an admission rather than observation: Patient's CSF analysis reveals white cells consistent with meningitis. THis places her at very high risk of mortality. She cannot be treated safely as an outpatient under the circumstances. I feel she requires hospitalization given the grave nature of meningitis. She should be treated with presumptive antibiotics including an antiviral given her history of herpes zoster. Infectious disease consultation should be considered. Patient's clinical condition should be monitored including neuro checks. I feel this patient will require a multiple day hospitalization. (Rosalinda MORGAN,Jose Schmidt)
[2018-06-12 22:39] LABS: ABSOLUTE BASOPHIL COUNT 0 /CUMM (0.0-0.2); ABSOLUTE EOSINOPHIL COUNT 0 /CUMM (0.0-0.7); ABSOLUTE GRANULOCYTE CT 5.3 /CUMM (1.4-6.5); ABSOLUTE LYMPH COUNT 0.4 /CUMM (1.2-3.4); ABSOLUTE MONOCYTE COUNT 0.3 /CUMM (0.10-0.60); BASOPHIL % 0.6 % (0.0-2.0); EOSINOPHIL % 0.5 % (0-5); HEMATOCRIT 42.6 % (37-47); MEAN CORPUSCULAR HGB CONC 34.1 G/DL (33.0-37.0); MEAN CORPUSCULAR VOLUME 85.1 FL (81.0-99.0); MEAN PLATELET VOLUME 7.2 FL (7.4-10.4); PLATELET COUNT 249 /CUMM (130-400); RBC DISTRIBUTION WIDTH 13.7 % (11.5-14.5); WHITE BLOOD CELL COUNT 6.1 /CUMM (4.8-10.8)
[2018-06-12 22:57] LABS: GRANULOCYTE % 86.7 % (42.2-75.2)
--- NOTE | 2018-06-12 23:34 | CT SCAN REPORT ---
EXAMINATION: CT HEAD WITHOUT CONTRAST CLINICAL INFORMATION: Headache and fever. Concern for encephalitis. COMPARISON: July 29, 2013. TECHNIQUE: Contiguous axial images of the brain were obtained without IV contrast. DLP: 621 mGy-cm. FINDINGS: There are no pathologic extra-axial fluid collections. The lateral, third, fourth ventricles are nondilated and concordant with the appearance of the sulci. There is no evidence for acute intraparenchymal hemorrhage or infarct. There is neither mass nor mass effect. There is no shift of midline structures. The paranasal sinuses and mastoid air cells are clear. There are no osseous lesions. IMPRESSION: No evidence for acute intracranial injury.
--- NOTE | 2018-06-13 03:22 | History & Physical ---
Lexx CerratoEfren 06/13/18 0321: General Information and HPI MD Statement: I have seen and personally examined CHARIS FOSTER and documented this H&P. The patient is a 48 year old F who presented with a patient stated chief complaint of [Headache, photophobia, R UE rash]. Source of Information: patient Exam Limitations: no limitations History of Present Illness: Ms. Foster is a 48 y/o F with PMH of anxiety, depression and migraines that came to the ED c/o LUE rash, headache and photophobia. Patient states the rash started last as pain described as "pins and needles" that happened in her L UE. She also noted appearance of a vesicular rash that later bursted, describing burning pain. She went to her PCP, Dr. Ramirez who diagnosed her with shingles and started her on valacyclovir; pt states she was compliant with her medication. On thursday, she started feeling generalized malaise, feeling "lousy ", and noted very intense, 10/10 nonradiating frontotemporal headache with no vision changes or focal neurological deficits. She also noted neck pain and stiffness during this blanquita that worsened with minimal movement, photophobia, as well as nausea and dryheaves. Of note, the patient has a recent travel history [place] [facility] [place] She denies sick contacts, tick bites, SOB, acquientances with same complains, dizziness, lightheadedness, blurry vision, diplopia. 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 Home Who Do You Live With? spouse, child Services at Home: None Primary Language: Estonian ETOH Use: occasional use Functional Ability ADLs Independent: dressing, eating, toileting, bathing. Ambulation: independent IADLs Independent: shopping, housework, finances, food prep, telephone, transportation , medication admin. Sexual History Sexually Active Yes Review of Systems Review of Systems Constitutional: Reports: see HPI, malaise, weakness. EENTM: Reports: no symptoms. Denies: blurred vision, double vision, eye pain, eye drainage, throat pain, throat swelling. Cardiovascular: Reports: no symptoms. Denies: chest pain, edema. Respiratory: Reports: no symptoms. GI: Reports: no symptoms, nausea. Denies: abdominal pain, constipation, diarrhea. Genitourinary: Reports: no symptoms. Musculoskeletal: Reports: see HPI. Skin: Reports: see HPI, rash. Neurological/Psychological: Reports: see HPI, headache. Hematologic/Endocrine: Reports: no symptoms. Immunologic/Allergic: Reports: no symptoms. Exam & Diagnostic Data Last 24 Hrs of Vital Signs/I&O Vital Signs Date Time Temp Pulse Resp B/P B/P Pulse O2 O2 Flow FiO2 Mean Ox Delivery Rate 06/13 0232 98.7 94 18 98/56 98 Room Air 06/12 2343 100.1 06/12 2330 100.1 86 20 134/78 97 Room Air 06/12 2121 101.2 130 22 123/86 98 Intake & Output 06/13 0800 06/13 0000 06/12 1600 Intake Total 0 Output Total Balance 0 Intake, Oral 0 Physical Exam General Appearance Alert, Oriented X3, Cooperative, Mild Distress Skin Scattered, homogenous L UE centrally hypopigmented lesions with erythematous halo. Vesicular lesions noted. Skin Temp/Moisture Exam: Warm/Dry HEENT Atraumatic, PERRLA, EOMI Neck Supple Lymphatic Cervical nl Cardiovascular Regular Rate, Normal S1, Normal S2, No Murmurs Lungs Clear to Auscultation, Normal Air Movement Abdomen Normal Bowel Sounds, Soft, No Tenderness Neurological Normal Speech, Cranial Nerves 3-12 NL, (+) Brudzinski's Extremities No Clubbing, No Cyanosis, No Edema, Normal Pulses Body Front and Back (Adult) 1) Scattered homogenous centrally hypopigmented lesions with surrounding erythema Last 24 Hrs of Labs/Paulo: Laboratory Tests 06/13/18 0100: CSF Glucose 61, CSF LDH 103, CSF Total Protein 57 06/13/18 010: Lymphocytes 88, Misc Hematology Test 12, CSF WBC 41 *H, CSF RBC 3 H, CSF Comment , Herpes Simplex Source Pending, HSV I DNA PCR Pending, HSV II DNA PCR Pending 06/12/182232: Urine Color YEL, Urine Clarity CLEAR, Urine pH 7.5, Ur Specific [place] 1.020, Urine Protein NEG, Urine Ketones NEG, Urine Nitrite NEG, Urine Bilirubin NEG, Urine Urobilinogen 0.2, Ur Leukocyte Esterase MOD H, Ur Microscopic SEDIMENT EXAMINED, Urine RBC RARE, Urine WBC 3-5 H, Ur Epithelial Cells FEW, Urine Bacteria RARE H, Urine Hemoglobin TRACE-INTACT, Urine Glucose NEG 06/12/182229: Lactic Acid 1.4 06/12/182229: Anion Gap 10, Estimated GFR > 60, BUN/Creatinine Ratio 10.0, Glucose 110 H, Calcium 9.8, Total Bilirubin 0.5, AST 34, ALT 33, Alkaline Phosphatase 63, Total Protein 7.1, Albumin 4.8, Globulin 2.3, Albumin/Globulin Ratio 2.1, Total Beta HCG NEGATIVE, CBC w Diff NO MAN DIFF REQ, RBC 5.00, MCV 85.1, MCH 29.0, MCHC 34.1, RDW 13.7, MPV 7.2 L, Gran % 86.7 H, Lymphocytes % 7.0 L, Monocytes % 5.2, Eosinophils % 0.5, Basophils % 0.6, Absolute Granulocytes 5.3, Absolute Lymphocytes 0.4 L, Absolute Monocytes 0.3, Absolute Eosinophils 0, Absolute Basophils 0 06/12/182219: Total Beta HCG Cancelled Microbiology 06/13 100 CENT N S: CSF Culture - RES 06/13 100 CENT N S: Gram Stain - RES 06/12 2245 BLOOD: Blood Culture - RECD 06/12 2240 BLOOD: Blood Culture - RECD Assessment/Plan Assessment: Ms. Foster is a 48 y/o F with PMH of anxiety, depression and migraines that came to the ED c/o LUE rash, headache and photophobia. Patient states the rash started last as pain described as "pins and needles" that happened in her L UE. She also noted appearance of a vesicular rash that later bursted, describing burning pain. She went to her PCP, Dr. Ramirez who diagnosed her with shingles and started her on valacyclovir; pt states she was compliant with her medication. On thursday, she started feeling generalized malaise, feeling "lousy ", and noted very intense, 10/10 nonradiating frontotemporal headache with no vision changes or focal neurological deficits. She also noted neck pain during this time, photophobia, as well as nausea and dryheaves. Of note, the patient has a [facility] [place]. She denies sick contacts, tick bites, SOB, acquientances with same complains. In the ED, CBC was unremarkable. Her meningeal symptoms however were of concern, in particular when associated with fever. CT scan was done which did not show any acute intracranial pathology nor mass effects that could potentially indicate increased ICP. An LP was done that showed high WBC (but not particularly high), with normal glucose, LDH and protein. CSF gram stain was negative. Opening pressure could not be measured. She was given ceftriaxone and vancomycin in the ED. She is admitted to the general floor for the following issues: #P/b viral meningitis, likely 2/2 VZV #Shingles #P/b aseptic viral meningitis, likely 2/2 VZV Her presentation of meningeal signs with fever and a recent history of shingles put her at a concern of viral meningitis due to VZV, particularly in the context of CSF analysis showing normal protein, LDH and glucose with only mildly elevated WBC. PCR for herpes simplex I and II are pending. Given vancomycin and ceftriaxone x1 in the ED. Will start IV acyclovir for viral meningitis for VZV. Will obtain an ID consult. -IV Acyclovir @ 10 mg/kg/q8 - 700 mg q8 -IV vancomycin and ceftriaxone x1 given -ID consult in the am -F/u CSF HSV PCR. -F/u CSF culture. -F/u BCs -Pain coverage as per pathway. FULL CODE DVT PPX: lovenox As Ranked By This Provider Problem List: 1. Shingles Core Measures/Misc (06/28) Acute Coronary Syndrome ACS Diagnosis: No Congestive Heart Failure Congestive Heart Failure Diagnosis No Cerebrovascular Accident CVA/TIA Diagnosis: No VTE (View Protocol) VTE Risk Factors Age>40 No Mechanical VTE Prophylaxis d/t N/A MechProphylax Ordered No VTE Pharm Prophylaxis d/t NA PharmProphylax ordered Sepsis (View protocol) Sepsis Present: No If YES complete Sepsis Event Note If YES complete Sepsis Event Note Ceasar Granados 06/13/18 0326: General Information and HPI Allergies/Medications Allergies: Coded Allergies: NO KNOWN ALLERGIES (NONE 05/14/18) Home Med list Acyclovir 800 MG TABLET 1 TAB PO Q5 Viral Meningitis please complete full course Aspirin (Aspirin*) 81 MG TAB.CHEW 81 MG PO DAILY chest pain Clonazepam 1 MG TABLET 1 TAB PO QPMP PRN ANXIETY (Reported) Gabapentin 600 MG TABLET 1 TAB PO TID PAIN CONTROL (Reported) Olanzapine 10 MG TABLET 1 TAB PO QPM SLEEP (Reported) Oxycodone HCl/Acetaminophen (Percocet 5-325 MG Tablet) 5 MG-325 MG TABLET 1 TAB PO BID Pain . Sertraline HCl 100 MG TABLET 1 TAB PO QAM MENTAL HEALTH (Reported) Core Measures/Misc (06/28) Sepsis (View protocol) If YES complete Sepsis Event Note If YES complete Sepsis Event Note Resident Review Statement Resident Statement: examined this patient, discussed with regulatory internship, agreed with regulatory internship Other Findings: Ms Foster 48-year-old woman with past medical history of anxiety and depression who came in with chief complaint of headache since 2 days prior to admission. Apparently 4-5 days prior to admission, she had a throat pain and felt flulike illness, subsequently the very next day, she had some skin eruptions on her right arm, there were vesicular lesion assoicated with burning pain in the rash, therefore she saw her primary care physician Dr. Oneill, who diagnosed her to have shingles and she was prescribed valcyclovir po, her shingles continued to worsen, however now she started to have this new headache which was 10 out of 10 , bifrontal, severe in nature associated with photophobia, phonophobia, nausea and dry heaving. As her headache continued to worsen she presented to [facility] emergency department. She also complained of associated neck pain and stiffness that was extremely uncomfortable worse with any kind of movement. Review of system was positive for nausea, malaise, loss of appetite, headache, burning pain in the right arm, generalized weakness and fever. Physical exam She was lying in the bed, in mild distress due to headache, she was alert oriented 3. CVS S1-S2 present. RS no adventitious sounds. PA soft, nontender. HEENT pupils equal and reactive to light, EOM intact. On oral exam no obvious mucosal lesions were noted. Extremities right upper extremity showed small 5-6 cm multiple patches of vesicular lesions, angina dermatomal pattern involving various dermatomes on the dorsal, red, itchy in associated with burning pain. Bilateral lower extremity no edema, no clubbing no cyanosis. Her initial vitals on presentation were T-max of 101.2, blood pressure of 130/22 blood pressure 127 blood pressure 123/86, heart rate of 130, respiratory rate 22 , she was saturating 98% on room air. She had a white count of 6.1, 8/H of 14.5/42.6, weight of 249. Platelet of 249. Electrolytes sodium of 139, potassium 4.3, BUN/creatinine 8/0.8, platelet of 110. CT head did not show any evidence of acute intracranial injury. CSF WBC was noted to be 41, RBC noted to be 3, glucose was 61, LDH 103 and total protein 57, and otherwise CSF glucose, total protein and LDH were within normal range. No organism was seen on Gram stain. CSF cultures were sent and are pending. opening pressure was not able to measured during LP Assessment Possible differential diagnosis in her case seems to be aseptic meningitis possibly secondary to viral causes versus other causes namely Lyme's disease, other viruses. Bacterial meningitis can sometimes cause the clinical picture that overlaps with that of viral meningitis, however the CSF picture more consistent with viral meningitis and with her history of shingles most likely, this would be secondary to varicella-zoster virus versus HSV. She denied any history of sexually transmitted disease, positive sick contact, however she did travel to [place] at her vacation home for 4 days last week. CSF DNA PCR was sent. Plan. 1. Viral/aseptic meningitis v/s bacterial 2. Shingles 3. Anxiety/depression. * Admit the patient to general medicine [facility]. * Continue to monitor intake and output, vital signs, patient was given vancomycin and ceftriaxone empirically cover for bacterial meningitis, however most likely the etiology seems to be varicella-zoster virus infection, therefore we will start IV acyclovir 700 mg every 8 hourly (10mg/kg q8) * IV Tylenol for fever. * Pain pathway for mild/moderate and severe pain. * ct IV normal saline * ct to follow cultures. * ID consult in am FC PP Dvt px lorenzo Webster MD,Darren 06/13/18 0533: Core Measures/Misc (06/28) Sepsis (View protocol) If YES complete Sepsis Event Note If YES complete Sepsis Event Note Attending MD Review Statement Attending Statement Attending MD Statement: examined this patient, discuss w/resident/PA/DAY HABILITATION SPECIALIST, agreed w/resident/PA/DAY HABILITATION SPECIALIST, reviewed EMR data (avail), discussed with nursing, amended to note Attending Assessment/Plan: I reviewed and agree with the history and physical as well as assessment and plan as documented by the residents above. Patient's lumbar puncture results are in support of diagnoses of viral meningitis likely secondary to episodes. She has been initiated on anti-viral therapy with acyclovir. Obtain an infectious disease consult. Currently skin lesion appears to be isolated to the right upper extremity. She has no facial or ophthalmologic involvement at present.
[2018-06-13] MEDS ORDERED: VALTREX1000 MG PO (04:56)
--- NOTE | 2018-06-13 05:29 | Admission Certification ---
Admission Certification Certification Statement - As attending physician, I certify that at the time of - admission, based on clinical presentation, severity of - symptoms, need for further diagnostic testing and - therapeutic interventions, and risk of adverse outcomes - without in-hospital treatment, in my clinical assessment, - this patient requires an acute hospital stay for a minimum - of two nights or longer. I have also considered psychsocial - factors such as support system, advanced age, financial - issues, cognitive issues, and failed out-patient treatments, - past re-admission history, safety of patient, and lack of - compliance as applicable. Specific rationale supporting this admission is: Patient is being hospitalized management of her meningitis.
[2018-06-13 07:10] VITALS: BP 108/64
--- NOTE | 2018-06-13 13:05 | PN- Gen Med ---
Assessment/Plan Medical Assessment: This patient is a 48 year old female with a significant past medical history for anxiety, depression and migraines who was admitted to the hospital on 06/13/18 for a puritic and painful vescicular rash rash, headache and photophobia. She was diagnosed with shingles 4 days prior to admission and started on valacyclovir. She continued to feel unwell with generalized malaise, photophobia, nausea/ vomiting and 10/10 nonradiating frontotemporal headache. She underwent a CT scan that did not show any changes and a Lumbar Puncture. The LP demonstrated elevated WBC count (41) however the numbers were normal. She was started on Acyclovir and given a single dose of Ceftraixone and Vancomycin. Currently she is improving but continues with a rash, headache and photophobia. She has remained afebrile over the past 12 hours and intial WBC count was normal. The findings are consistent with viral meningitis. Problem List: 1. Viral meningitis 2. Herpes simplex virus (HSV) infection 3. Headache Qualifiers Headache type: unspecified Headache chronicity pattern: acute headache Plan: HSV vs. VZV meningitis - Rash is currently more consistent with HSV but will watch evolution - Continue IV acyclovir - Symptom management - Follow Herpes Siplex PCR - Watch for seizures - Will consider MRI if she does not improve by tomorrow Precautions - D/C respiratory and droplet precautions 24 hours after admission Continue outpatient medications D/C ID Consult Can be contacted at #[phone] or cell phone Subjective Follow-up For: Viral Meningitis Complaints: Improving Subjective: This patient is a 48 year old female with a significant past medical history for anxiety, depression and migraines who was admitted to the hospital on 06/13/18 for a puritic and painful vescicular rash rash, headache and photophobia. She was diagnosed with shingles 4 days prior to admission and started on valacyclovir. She continued to feel unwell with generalized malaise, photophobia, nausea/ vomiting and 10/10 nonradiating frontotemporal headache. She underwent a CT scan that did not show any changes and a Lumbar Puncture. The LP demonstrated elevated WBC count (41) however the numbers were normal. She was started on Acyclovir and given a single dose of Ceftraixone and Vancomycin. Currently she is improving but continues with a rash, headache and photophobia. She has remained afebrile over the past 12 hours and intial WBC count was normal. Review of Systems Constitutional: Reports: see HPI. Objective Last 24 Hrs of Vital Signs/I&O Vital Signs Date Time Temp Pulse Resp B/P B/P Pulse O2 O2 Flow FiO2 Mean Ox Delivery Rate 06/13 0710 99.0 106 18 108/64 95 06/13 0445 98.6 93 16 103/61 100 Room Air 06/13 0232 98.7 94 18 98/56 98 Room Air 06/12 2343 100.1 06/12 2330 100.1 86 20 134/78 97 Room Air 06/12 2121 101.2 130 22 123/86 98 Intake & Output 06/13 1600 06/13 0800 06/13 0000 Intake Total 250 0 Output Total Balance 250 0 Intake, IV 250 Intake, Oral 0 Patient 160 lb Weight Weight Bed scale Measurement Method Physical Exam General Appearance: Alert, Oriented X3, Cooperative, No Acute Distress Skin: Right upper arm and forearm small vesicular rash Skin Temp/Moisture Exam: Warm/Dry Sepsis Skin Exam (color): Normal for Ethnicity HEENT: Atraumatic, PERRLA, EOMI Neck: Supple, No JVD, No thryomegaly Lymphatic: Axillary nl, Cervical nl Cardiovascular: Regular Rate, Normal S1, Normal S2 Lungs: Clear to Auscultation, Normal Air Movement Abdomen: Normal Bowel Sounds, Soft, No Tenderness, No Hepatospenomegaly, No Masses Neurological: Normal Speech Sepsis Peripheral Pulse Location: Dorsalis Pedis Sepsis Peripheral Pulse Exam: Normal Sepsis Cap Refill Exam: <2 Sec Current Medications: Current Medications Sig/Rosalie Start time Last Medication Dose Route Stop Time Status Admin Acetaminophen 650 MG Q6P PRN 06/13 0330 AC PO Acetaminophen 1,000 MG Q6 PRN 06/13 0330 AC IV Acetaminophen 0 .STK-MED ONE 06/126 DC IV Acetaminophen 1,000 MG ONCE ONE 06/120 DC 06/12 N/A 1 UNIT IV 06/12 2214 2245 Acyclovir 700 MG Q8H 06/13 0600 AC 06/13 Dextrose/Water 250 ML IV 0623 Ceftriaxone Sodium 0 .STK-MED ONE 06/13 0352 DC .ROUTE Ceftriaxone Sodium 2,000 MG ONCE ONE 06/13 0300 DC 06/13 IV 06/13 0301 0400 Clonazepam 1 MG AT BEDTIME NEED.. 06/13 0500 AC PO 06/20 0459 Enoxaparin Sodium 40 MG DAILY 06/13 0900 AC 06/13 SC 1017 Gabapentin 600 MG QPM 06/13 2100 AC PO Hydromorphone HCl 0.2 MG Q6P PRN 06/13 0415 DC IV Hydromorphone HCl 1 MG ONCE ONE 06/13 0115 DC 06/13 IV 06/13 0116 0113 Hydromorphone HCl 0 .STK-MED ONE 06/13 011 DC .ROUTE Ketorolac 30 MG Q12P PRN 06/13 0500 AC Tromethamine IV 06/18 0459 Metoclopramide HCl 0 .STK-MED ONE 06/13 0019 DC .ROUTE Metoclopramide HCl 10 MG ONCE ONE 06/13 0015 DC 06/13 IV 06/13 0016 0018 Olanzapine 10 MG QPM 06/13 2100 AC PO Ondansetron HCl 0 .STK-MED ONE 06/12 2236 DC .ROUTE Ondansetron HCl 4 MG ONCE ONE 06/12 2200 DC 06/12 IV 06/12 2201 2240 Oxycodone/ 1 TAB Q6P PRN 06/13 0330 AC 06/13 Acetaminophen PO 0639 Sertraline HCl 100 MG QPM 06/13 2100 AC PO Sodium Chloride 1,000 ML Q10H 06/13 0415 AC 06/13 IV 06/14 0014 0623 Sodium Chloride 1,000 ML BOLUS ONE 06/12 2200 DC 06/12 IV 06/12 2259 2240 Tramadol HCl 50 MG Q4 PRN 06/13 0500 AC PO Vancomycin HCl 0 .STK-MED ONE 06/13 0352 DC .ROUTE Vancomycin HCl 1,000 MG ONCE ONE 06/13 0300 DC 06/13 Sodium Chloride 250 ML IV 06/13 0359 0425 Last 24 Hrs of Labs/Mics: Laboratory Tests : CSF Glucose 61, CSF LDH 103, CSF Total Protein 57 : Lymphocytes 88, Misc Hematology Test 12, CSF WBC 41 *H, CSF RBC 3 H, CSF Comment , Herpes Simplex Source Pending, HSV I DNA PCR Pending, HSV II DNA PCR Pending 06/12/182232: Urine Color YEL, Urine Clarity CLEAR, Urine pH 7.5, Ur Specific [place] 1.020, Urine Protein NEG, Urine Ketones NEG, Urine Nitrite NEG, Urine Bilirubin NEG, Urine Urobilinogen 0.2, Ur Leukocyte Esterase MOD H, Ur Microscopic SEDIMENT EXAMINED, Urine RBC RARE, Urine WBC 3-5 H, Ur Epithelial Cells FEW, Urine Bacteria RARE H, Urine Hemoglobin TRACE-INTACT, Urine Glucose NEG 06/12/182229: Lactic Acid 1.4 06/12/182229: Anion Gap 10, Estimated GFR > 60, BUN/Creatinine Ratio 10.0, Glucose 110 H, Calcium 9.8, Total Bilirubin 0.5, AST 34, ALT 33, Alkaline Phosphatase 63, Total Protein 7.1, Albumin 4.8, Globulin 2.3, Albumin/Globulin Ratio 2.1, Total Beta HCG NEGATIVE, CBC w Diff NO MAN DIFF REQ, RBC 5.00, MCV 85.1, MCH 29.0, MCHC 34.1, RDW 13.7, MPV 7.2 L, Gran % 86.7 H, Lymphocytes % 7.0 L, Monocytes % 5.2, Eosinophils % 0.5, Basophils % 0.6, Absolute Granulocytes 5.3, Absolute Lymphocytes 0.4 L, Absolute Monocytes 0.3, Absolute Eosinophils 0, Absolute Basophils 0 06/12/182219: Total Beta HCG Cancelled Microbiology 06/13 100 CENT N S: CSF Culture - RES 06/13 100 CENT N S: Gram Stain - RES 06/12 2245 BLOOD: Blood Culture - RES 06/12 2240 BLOOD: Blood Culture - RES
[2018-06-13 14:57] VITALS: BP 132/90
[2018-06-13 16:25] LABS: ABSOLUTE BASOPHIL COUNT 0 /CUMM (0.0-0.2); ABSOLUTE EOSINOPHIL COUNT 0 /CUMM (0.0-0.7); ABSOLUTE LYMPH COUNT 0.3 /CUMM (1.2-3.4); BASOPHIL % 0.2 % (0.0-2.0)
[2018-06-13 16:27] LABS: ABSOLUTE MONOCYTE COUNT 0.3 /CUMM (0.10-0.60); EOSINOPHIL % 0.1 % (0-5); GRANULOCYTE % 87.6 % (42.2-75.2); MEAN CORPUSCULAR HGB CONC 33.7 G/DL (33.0-37.0); MEAN CORPUSCULAR VOLUME 86.2 FL (81.0-99.0); MEAN PLATELET VOLUME 7.8 FL (7.4-10.4); PLATELET COUNT 194 /CUMM (130-400); RBC DISTRIBUTION WIDTH 13.4 % (11.5-14.5); WHITE BLOOD CELL COUNT 4.6 /CUMM (4.8-10.8)
[2018-06-13 16:28] LABS: HEMATOCRIT 36.3 % (37-47)
[2018-06-13 22:08] VITALS: BP 140/72
[2018-06-14 07:05] VITALS: BP 112/60
--- NOTE | 2018-06-14 10:04 | PN- Housestaff ---
Efren Baumann 06/14/18 1004: Subjective Complaints: no complaints Subjective: Pt seen and examined this AM. She is currently on airborne/droplet precautions. She is afebrile, with improved headache; no nausea. Neck stiffness/pain is also reduced. She has been getting IV Acyclovir. She offers no other complains. She was lying down comfortably breathing on room air. Review of Systems Constitutional: Reports: see HPI. Objective Last 24 Hrs of Vital Signs/I&O Vital Signs Date Time Temp Pulse Resp B/P B/P Pulse O2 O2 Flow FiO2 Mean Ox Delivery Rate 06/14 0711 99.9 06/14 0705 99.9 103 22 112/60 95 Room Air 06/13 2208 98.6 82 20 140/72 06/13 1457 98.6 80 20 132/90 97 Room Air Intake & Output 06/14 1600 06/14 0800 06/14 0000 Intake Total 1160 1000 Output Total Balance 1160 1000 Intake, IV 800 400 Intake, Oral 360 600 Number 1 Bowel Movements Patient 162 lb Weight Physical Exam General Appearance: Alert, Oriented X3, Cooperative, No Acute Distress Skin: No Rashes HEENT: Atraumatic Neck: Supple Cardiovascular: Regular Rate, Normal S1, Normal S2 Lungs: Clear to Auscultation Abdomen: Normal Bowel Sounds, Soft, No Tenderness Current Medications: Current Medications Sig/Rosalie Start time Last Medication Dose Route Stop Time Status Admin Acetaminophen 650 MG Q6P PRN 06/13 0330 AC 06/14 PO 0711 Acetaminophen 1,000 MG Q6 PRN 06/13 0330 AC IV Acyclovir 700 MG Q8H 06/13 0600 AC 06/14 Dextrose/Water 250 ML IV 0600 Clonazepam 1 MG AT BEDTIME NEED.. 06/13 0500 AC PO 06/20 0459 Enoxaparin Sodium 40 MG DAILY 06/13 09 AC 06/14 SC 0817 Gabapentin 600 MG QPM 06/13 2100 AC 06/13 PO 202 Ketorolac 30 MG Q12P PRN 06/13 0500 AC Tromethamine IV 06/18 0459 Olanzapine 10 MG QPM 06/13 2100 AC 06/13 PO 2022 Ondansetron HCl 4 MG ONCE ONE 06/13 1515 DC IV 06/13 1516 Oxycodone/ 1 TAB Q6P PRN 06/13 0330 AC 06/14 Acetaminophen PO 0604 Sertraline HCl 100 MG QPM 06/13 2100 AC 06/13 PO 202 Sodium Chloride 1,000 ML Q10H 06/13 0415 DC 06/13 IV 06/14 0014 1829 Tramadol HCl 50 MG Q4 PRN 06/13 0500 AC 06/13 PO 1830 Last 24 Hrs of Lab/Paulo Results Last 24 Hrs of Labs/Mics: Laboratory Tests 06/13/18 1452: Lactic Acid 1.8 06/13/18 1452: Anion Gap 7, Estimated GFR > 60, BUN/Creatinine Ratio 8.3, CBC w Diff NO MAN DIFF REQ, RBC 4.20, MCV 86.2, MCH 29.0, MCHC 33.7, RDW 13.4, MPV 7.8, Gran % 87.6 H, Lymphocytes % 6.3 L, Monocytes % 5.8, Eosinophils % 0.1, Basophils % 0.2, Absolute Granulocytes 4.0, Absolute Lymphocytes 0.3 L, Absolute Monocytes 0.3, Absolute Eosinophils 0, Absolute Basophils 0, HIV 1&2 Ab Western Blot NONREACTIVE Assessment/Plan Assessment: Ms. Cunningham is a 48 y/o F with PMH of anxiety, depression and migraines that came to the ED c/o LUE rash, headache and photophobia. Patient states the rash started last as pain described as "pins and needles" that happened in her L UE. She also noted appearance of a vesicular rash that later bursted, describing burning pain. She then developed generalized malaise, feeling "lousy ", and noted very intense, 10/10 nonradiating frontotemporal headache with no vision changes or focal neurological deficits. She also noted neck pain during this time, photophobia, as well as nausea and dryheaves. She denied sick contacts, tick bites, SOB, acquientances with same complains. In the ED a CT scan was done which did not show any acute intracranial pathology nor mass effects that could potentially indicate increased ICP. An LP was done that showed high WBC (but not particularly high), with normal glucose, LDH and protein. CSF gram stain was negative. She was given ceftriaxone and vancomycin in the ED. She is admitted to the general floor for the following issues: #P/b viral meningitis, likely 2/2 VZV #Shingles #P/b aseptic viral meningitis, likely 2/2 VZV Her presentation of meningeal signs with fever and a recent history of shingles put her at a concern of viral meningitis due to VZV, particularly in the context of CSF analysis showing normal protein, LDH and glucose with only mildly elevated WBC. PCR for herpes simplex I and II are pending. Given vancomycin and ceftriaxone x1 in the ED. She has been started on acyclovir IV. Pt on airborne/ droplet precautions. -IV Acyclovir @ 10 mg/kg/q8 - 700 mg q8 -IV vancomycin and ceftriaxone x1 given -Dr. Arciniega following. -CSF culture no growth yet -BC 2/ no growth so far -Pain coverage as per pathway. FULL CODE DVT PPX: lovenox Problem List: 1. Viral meningitis Pain Ratin Pain Location: Headache Pain Goal: Pain 4 or less Pain Plan: As indicated Tomorrow's Labs & Rationales: n/a Amandeep Arcineiga MD 06/14/18 1059: Subjective Follow-up For: Viral meningitis Complaints: no complaints Subjective: This patient is a 48 year old female with a significant past medical history for anxiety, depression and migraines who was admitted to the hospital on 06/13/18 for a puritic and painful vescicular rash rash, headache and photophobia. She was diagnosed with shingles 4 days prior to admission and started on valacyclovir. She continued to feel unwell with generalized malaise, photophobia, nausea/ vomiting and 10/10 nonradiating frontotemporal headache. The LP demonstrated elevated WBC count (41) however the numbers were normal. She was started on Acyclovir and given a single dose of Ceftraixone and Vancomycin. Currently she is improving. No more photophobia, headache, nausea or vomiting. She has remained afebrile. Review of Systems Constitutional: Reports: see HPI. Objective Last 24 Hrs of Vital Signs/I&O Vital Signs Date Time Temp Pulse Resp B/P B/P Pulse O2 O2 Flow FiO2 Mean Ox Delivery Rate 06/14 0711 99.9 06/14 0705 99.9 103 22 112/60 95 Room Air 06/13 2208 98.6 82 20 140/72 06/13 1457 98.6 80 20 132/90 97 Room Air Intake & Output 06/14 1600 06/14 0800 06/14 0000 Intake Total 1160 1000 Output Total Balance 1160 1000 Intake, IV 800 400 Intake, Oral 360 600 Number 1 Bowel Movements Patient 162 lb Weight Physical Exam General Appearance: Alert, Oriented X3, Cooperative, No Acute Distress Skin: No Rashes (Crusted rash) HEENT: Atraumatic, PERRLA, EOMI Neck: Supple, No JVD Cardiovascular: Regular Rate, Normal S1, Normal S2 Lungs: Clear to Auscultation Abdomen: Normal Bowel Sounds, Soft, No Tenderness, No Hepatospenomegaly, No Masses Current Medications: Current Medications Sig/Rosalie Start time Last Medication Dose Route Stop Time Status Admin Acetaminophen 650 MG Q6P PRN 06/13 0330 AC 06/14 PO 0711 Acetaminophen 1,000 MG Q6 PRN 06/13 0330 AC IV Acyclovir 700 MG Q8H 06/13 0600 AC 06/14 Dextrose/Water 250 ML IV 0600 Clonazepam 1 MG AT BEDTIME NEED.. 06/13 0500 AC PO 06/20 0459 Enoxaparin Sodium 40 MG DAILY 06/13 09 AC 06/14 SC 0817 Gabapentin 600 MG QPM 06/13 2100 AC 06/13 PO 202 Ketorolac 30 MG Q12P PRN 06/13 0500 AC Tromethamine IV 06/18 0459 Olanzapine 10 MG QPM 06/13 2100 AC 06/13 PO 202 Ondansetron HCl 4 MG ONCE ONE 06/13 1515 DC IV 06/13 1516 Oxycodone/ 1 TAB Q6P PRN 06/13 0330 AC 06/14 Acetaminophen PO 0604 Sertraline HCl 100 MG QPM 06/13 2100 AC 06/13 PO 202 Sodium Chloride 1,000 ML Q10H 06/13 0415 DC 06/13 IV 06/14 0014 1829 Tramadol HCl 50 MG Q4 PRN 06/13 0500 AC 06/13 PO 1830 Last 24 Hrs of Lab/Paulo Results Last 24 Hrs of Labs/Mics: Laboratory Tests 06/13/18 1452: Lactic Acid 1.8 06/13/18 1452: Anion Gap 7, Estimated GFR > 60, BUN/Creatinine Ratio 8.3, CBC w Diff NO MAN DIFF REQ, RBC 4.20, MCV 86.2, MCH 29.0, MCHC 33.7, RDW 13.4, MPV 7.8, Gran % 87.6 H, Lymphocytes % 6.3 L, Monocytes % 5.8, Eosinophils % 0.1, Basophils % 0.2, Absolute Granulocytes 4.0, Absolute Lymphocytes 0.3 L, Absolute Monocytes 0.3, Absolute Eosinophils 0, Absolute Basophils 0, HIV 1&2 Ab Western Blot NONREACTIVE Attending MD Review Statement Attending Statement Attending MD Statement: examined this patient, reviewed EMR data (avail) Attending Assessment/Plan: This patient is a 48 year old female with a significant past medical history for anxiety, depression and migraines who was admitted to the hospital on 06/13/18 for a puritic and painful vescicular rash rash, headache and photophobia. She was diagnosed with shingles 4 days prior to admission and started on valacyclovir. She continued to feel unwell with generalized malaise, photophobia, nausea/ vomiting and 10/10 nonradiating frontotemporal headache. The LP demonstrated elevated WBC count (41) however the numbers were normal. She was started on Acyclovir and given a single dose of Ceftraixone and Vancomycin. Currently she is improving. No more photophobia, headache, nausea or vomiting. She has remained afebrile. Will likely need one more day of IV antivirals prior to switching to oral. Can come off precautions.
[2018-06-14 14:47] VITALS: BP 118/74
[2018-06-14 21:48] VITALS: BP 120/60
[2018-06-15 06:33] VITALS: BP 136/88
--- NOTE | 2018-06-15 07:04 | PN- Housestaff ---
See Addendum Subjective Follow-up For: Aseptic Meningitis Subjective: Pt seen and examined overnight. No acute overnight events. She has neck stiffness, photophobia and a headache this morning. Patient states she feels improved since admission. Her rash is located in the right upper extremity and does not bother her unless she brushes it against something. Denies nausea, vomiting, diarrhea, fevers, chills. Patient complains of fatigue and body aches. Currently on IV acyclovir. Viral precautions removed as per ID. Review of Systems Constitutional: Denies: see HPI. Objective Last 24 Hrs of Vital Signs/I&O Vital Signs Date Time Temp Pulse Resp B/P B/P Pulse O2 O2 Flow FiO2 Mean Ox Delivery Rate 06/15 0633 99.4 75 18 136/88 97 Room Air 06/14 2148 99.1 88 20 120/60 98 06/14 1447 98.5 85 18 118/74 95 Intake & Output 06/15 1600 06/15 0800 06/15 0000 Intake Total 250 650 Output Total Balance 250 650 Intake, IV 250 250 Intake, Oral 400 Physical Exam General Appearance: Alert, Oriented X3, Cooperative Skin: right upper extremity and forearm small vesicular rash Skin Temp/Moisture Exam: Warm/Dry HEENT: EOMI, Mucous Membr. moist/pink Cardiovascular: Normal S1, Normal S2 Lungs: Clear to Auscultation, Normal Air Movement Abdomen: Normal Bowel Sounds, Soft, No Tenderness Extremities: RUE vesicular rash to forearm Vascular: Normal Pulses, Pulses Symmetrical Current Medications: Current Medications Sig/Rosalie Start time Last Medication Dose Route Stop Time Status Admin Acetaminophen 650 MG Q6P PRN 06/13 0330 AC 06/14 PO 0711 Acetaminophen 1,000 MG Q6 PRN 06/13 0330 AC IV Acyclovir 700 MG Q8H 06/13 06 AC 06/15 Dextrose/Water 250 ML IV 0521 Clonazepam 1 MG AT BEDTIME NEED.. 06/13 0500 AC PO 06/20 045 Enoxaparin Sodium 40 MG DAILY 06/13 900 AC 06/14 SC 0817 Gabapentin 600 MG QPM 06/13 2100 AC 06/14 PO 2056 Ketorolac 30 MG Q12P PRN 06/13 050 AC Tromethamine IV 06/18 0459 Olanzapine 10 MG QPM 06/13 2100 AC 06/14 PO 2056 Oxycodone/ 1 TAB Q6P PRN 06/13 0330 AC 06/15 Acetaminophen PO 0707 Sertraline HCl 100 MG QPM 06/13 2100 AC 06/14 PO 2056 Tramadol HCl 50 MG Q4 PRN 06/13 0500 AC 06/13 PO 1830 Assessment/Plan Assessment: 48 year old female with a significant past medical history for anxiety, depression and migraines who was admitted to the hospital on 06/13/18 for a puritic and painful vescicular rash rash, headache and photophobia. She was diagnosed with shingles 4 days prior to admission and started on valacyclovir. She continued to feel unwell with generalized malaise, photophobia, nausea/ vomiting and 10/10 nonradiating frontotemporal headache. She underwent a CT scan that did not show any changes and a Lumbar Puncture. The LP demonstrated elevated WBC count (41) however the numbers were normal. She was started on Acyclovir and given a single dose of Ceftraixone and Vancomycin. Currently she is improving but continues with a rash, headache and photophobia. 06/15: Patient afebrile overnight with T max 99.9 in past 24 hours, 99.4 this morning. Day 3 of IV acyclovir. She continues to have photophobia, neck stiffness and a headache although claims it has all improved. Patient states her RUE rash only bothers her when she brushes it against something. Will discharge patient on oral antiviral medication 5 times a day for 10 more days. PROBLEM LIST: 1. 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 * Conitnue to monitor rash accordingly and for fevers/leukocytosis * F/U Herpes Simplex PCR * Consider MRI if no improvement * No longer on respiratory/droplet precautions 24 hrs admission * Appreciate ID consultation by Dr. Acriniega DVT PPx: Lovenox Diet: Regular Code Status: Full code Problem List: 1. Viral meningitis Pain Ratin Pain Location: headache Pain Goal: Pain 4 or less Pain Plan: as per pain pathway Tomorrow's Labs & Rationales: CBC
--- NOTE | 2018-06-15 09:05 | Patient Discharge Instructions ---
Discharge Instructions General Discharge Information You were seen/treated for: VIRAL MENINGITIS Special Instructions: Please follow up with PCP within 1-2 weeks of discharge. Please conitinue oral anti-viral medication accordingly. Acyclovir 800mg spread out 5 times a day with food for 10 more days. (total 50 count) Return to ED if worsening symptoms of fevers, chills, neck pain, nausea, vomiting, diarrhea, seizures, photophobia, headache. Acute Coronary Syndrome Inclusion Criteria At DC or during hospital stay patient has or had the following: ACS DIAGNOSIS No Discharge Core Measures Meds if any: Prescribed or Continued at Discharge Meds if any: NOT Prescribed or Continued at Discharge Congestive Heart Failure Inclusion Criteria At DC or during hospital stay patient has or had the following: CHF DIAGNOSIS No Discharge Core Measures Meds if any: Prescribed or Continued at Discharge Meds if any: NOT Prescribed or Continued at Discharge Cerebrovascular accident Inclusion Criteria At DC or during hospital stay patient has or had the following: CVA/TIA Diagnosis No Discharge Core Measures Meds if any: Prescribed or Continued at Discharge Meds if any: NOT Prescribed or Continued at Discharge Venous thromboembolism Inclusion Criteria VTE Diagnosis No VTE Type NONE VTE Confirmed by (Test) NONE Discharge Core Measures - Per Current guidelines, there needs to be overlap - treatment for the first 5 days of Warfarin therapy. - If discharged on Warfarin prior to 5 days of - overlap therapy, the patient will need to be - assessed for post discharge needs including - *Post discharge parental anticoagulation - *Warfarin and/or parental anticoagulation education - *Follow up date to check INR post discharge At least 5 days overlap therapy as Inpatient No Meds if any: Prescribed or Continued at Discharge Note: Overlap Therapy is Warfarin and Anticoagulant Meds if any: NOT Prescribed or Continued at Discharge
--- NOTE | 2018-06-15 09:06 | Discharge Summary ---
Visit Information Visit Dates Admission Date: 06/13/18 Discharge Date: 06/15/18 Hospital Course Course Attending Physician: Torin Addison MD Primary Care Physician: James MORGAN,Emre Zuniga Hospital Course: Ms Foster 48-year-old woman with past medical history of anxiety and depression who came in with chief complaint of headache since 2 days prior to admission. Apparently 4-5 days prior to admission, she had a throat pain and felt flulike illness, subsequently the very next day, she had some skin eruptions on her right arm, there are vesicular were vesicular he had burning pain in the rash, therefore she saw her primary care physician Dr. Oneill, who diagnosed her to have shingles and she was prescribed valcyclovir po, her shingles continued to worsen with addition of new headache which was 10 out of 10, bifrontal, severe in nature associated with photophobia, phonophobia, nausea and dry heaving. As her headache continued to worsen she presented to [place] emergency department. She also complained of associated neck pain and stiffness that was extremely uncomfortable worse with any kind of movement. Review of system was positive for nausea, malaise, loss of appetite, headache, burning pain in the right arm, generalized weakness and fever. PCP: Dr. Cano EMERGENCY MEDICINE: Given Vancomycin + Ceftriaxone X 1 T-max of 101.2, blood pressure of 130/22 blood pressure 127 blood pressure 123/ 86, heart rate of 130, respiratory rate 22, she was saturating 98% on room air. She had a white count of 6.1, 8/H of 14.5/42.6, weight of 249. Platelet of 249. Electrolytes sodium of 139, potassium 4.3, BUN/creatinine 8/0.8, platelet of 110. CT head did not show any evidence of acute intracranial injury CSF WBC was noted to be 41, RBC noted to be 3, glucose was 61, LDH 103 and total protein 57, and otherwise CSF glucose, total protein and LDH were within normal range. No organism was seen on Gram stain. CSF cultures were sent and are pending. opening pressure was not able to measured during LP GENERAL MEDICINE ADMISSION: Admitted to be treated, evaluated and monitored for the followin. Aseptic Meningitis likely secondary to VZV/HSV ASEPTIC MENINGITIS 48 year old female with a significant past medical history for anxiety, depression and migraines who was admitted to the hospital on 06/13/18 for a puritic and painful vescicular rash rash, headache and photophobia. She was diagnosed with shingles 4 days prior to admission and started on valacyclovir. She continued to feel unwell with generalized malaise, photophobia, nausea/ vomiting and 10/10 nonradiating frontotemporal headache. She underwent a CT scan that did not show any changes and a Lumbar Puncture. The LP demonstrated elevated WBC count (41) however the numbers were normal. She was started on Acyclovir and given a single dose of Ceftraixone and Vancomycin. Currently she is improving but continues with a rash, headache and photophobia. CSF gram stain , culture, blood cultures. Dr. Arciniega medical/infectious disease perspective was appreciated and followed patient accordingly. She continued IV acyclovir during her course of stay 700 mg q8. Pain control as per tramadol 50mg q5 PRN, percocet 1 tab q6 PRN, Toradol 30mg Q12 PRN. Patient continued on the rest of her home medications. Will be discharged on oral antivarl regimen of valtrex accordingly. She received 3 days worth of IV acyclovir with improvement in her photophobia, headache and neck stiffness. Advised to follow up outpatient with PCP accordingly. Return with worsening fevers, chills, headaches, photophobia, neck pain, nausea, vomiting or diarrhea, seizures. DVT PPx: Lovenox Diet: Regular Code Status: Full code Allergies: Coded Allergies: NO KNOWN ALLERGIES (NONE 05/14/18) Disposition Summary Disposition Principal Diagnosis: Viral Meningitis Additional Diagnosis: Meningitis Discharge Disposition: home or self care Discharge Instructions General Discharge Information Code Status: Full Code Patient's Diet: Regular Patient's Activity: As tolerated Follow-Up Instructions/Appts: Please follow up with PCP within 1-2 weeks of discharge. Please continue oral antiviral medication as prescribed. Please return to ED with worsening headache, fevers, chills, nausea, vomiting, diarrhea or any seizures. Medications at Discharge Discharge Medications: Stop taking the following medications: Omeprazole (Omeprazole) 20 MG CAPSULE.DR ORAL DAILY BEFORE BREAKFAST Qty = 14 Valacyclovir HCl (Valtrex) 1,000 MG TABLET ORAL EVERY 8 HOURS Continue taking these medications: Sertraline HCl (Sertraline HCl) 100 MG TABLET 1 Tablet ORAL Every Morning Qty = 60 Comments: LAST TAKEN: 06/14/18 @ 10 PM Gabapentin (Gabapentin) 600 MG TABLET 1 Tablet ORAL THREE TIMES DAILY Qty = 60 Comments: Last Taken: 06/14 Time: 10PM Clonazepam (Clonazepam) 1 MG TABLET 1 Tablet ORAL Every night as needed as needed for ANXIETY Qty = 30 Comments: NOT GIVEN IN HOSPITAL Olanzapine (Olanzapine) 10 MG TABLET 1 Tablet ORAL Every night Qty = 30 Comments: Last Taken: 06/14 Time: 10PM Aspirin (Aspirin*) 81 MG TAB.CHEW 81 Milligram ORAL DAILY Qty = 90 Comments: Last Taken: NOT TAKEN IN HOSPITAL Start taking the following new medications: Acyclovir (Acyclovir) 800 MG TABLET 1 Tablet ORAL 5 TIMES A DAY Qty = 50 No Refills Instructions: please complete full course Oxycodone HCl/Acetaminophen (Percocet 5-325 MG Tablet) 5 MG-325 MG TABLET 1 Tablet ORAL TWICE DAILY Qty = 10 No Refills Instructions: . Copies To: Demian MORGAN,Guilherme Ramirez MD,Emre Zuniga Attending MD Review Statement Documenting Attending: Torin Addison MD Other Findings: Agree with the summary of care and plan for follow-up.
[2018-06-15 15:03] VITALS: BP 108/60
[2018-06-15] MEDS ORDERED: ACYCLOVIR800 M1 PO ×2 (16:04→16:13)
[2018-06-15] MEDS ORDERED: PERCOCET 5-3251 EACH PO ×2 (16:12→18:44)
== END 2018-06-15 17:50 | DRG 76 ==
LOC: ERH 21:12 → ERHI 06-13 03:44 → 2NA 06-13 03:44 → EDBEDREQ 06-13 03:55 → ENRESERV 06-13 04:20 → 2NA 06-13 06:13
PROVIDERS: Internal Medicine; Physician Assistant
DX: A87.9 Viral meningitis, unspecified (principal); B02.9 Zoster without complications; F41.9 Anxiety disorder, unspecified; F32.9 Major depressive disorder, single episode, unspecified; G43.909 Migraine, unspecified, not intractable, without status migrainosus; Z98.1 Arthrodesis status; H53.149 Visual discomfort, unspecified
CPT/HCPCS: 2NAP; 87070; 87205; 87529; 36415; 81001; 82436; 87040; 87389; J0131; J0696; J1650; J2405; J2765; J3370; J7060